=== PATIENT | female | born 1990 | race African-American/Black ===

== ENCOUNTER 2017-05-20 06:50 | Inpatient (IN) | payer OTHER ==
[2017-05-20] MEDS ORDERED: Ondansetron 4 MG/2 ML SDV IVPUSH PRN ×2 (07:03→08:26)
[2017-05-20] MEDS ORDERED: Sodium Chloride 0.9% 10 ML Syringe FLUSH PRN (07:03)
[2017-05-20] MEDS ORDERED: Nalbuphine 20 MG/1 ML Amp IVPUSH PRN (07:03)
[2017-05-20] MEDS ORDERED: Acetaminophen 325 MG Tab PO PRN ×2 (07:03→23:15)
--- NOTE | 2017-05-20 07:06 | PCM.LDHP ---
L&D History of Present Illness - General Date of Service: 05/20/17 Admit Problem/Dx: Patient Status Order with Admit Dx/Problem 05/20/17 07:04 Patient Status [ADT] Routine Admission Diagnosis/Problem Admission Diagnosis/Problem Normal Source of Information: Patient History Limitations: Reports: No Limitations - History of Present Illness Introduction:: Patient is a 26-year-old 001 at 39-6/7 weeks who presents today for elective induction of labor. Doing well today. Notes good movement. No pattern contractions. No complaints of headaches, vision changes, or right upper quadrant pain. - Related Data Allergies/Adverse Reactions: Allergies Allergy/AdvReac Type Severity Reaction Status Date / Time banana Allergy Stomach Verified 04/18/16 07:48 Ache Home Medications: Home Meds Ondansetron [Zofran ODT] 1 tab PO Q8H PRN #10 tab.dis 04/18/16 [Rx] Past Medical History Respiratory History: Reports: Asthma - Past Surgical History HEENT Surgical History: Reports: Eye Surgery Social & Family History - Family History Cardiac: Reports: Stent - Tobacco Use Smoking Status *Q: Never Smoker Second Hand Smoke Exposure: Yes - Alcohol Use Alcohol Use History: No Days Per Week of Alcohol Use: 0 - Recreational Drug Use Recreational Drug Use: No - Living Situation & Occupation Living situation: Reports: Single, with Significant Other, with Family Occupation: Employed H&P Review of Systems - Review of Systems: Review Of Systems: See Below General: Reports: No Symptoms Pulmonary: Reports: No Symptoms Cardiovascular: Reports: No Symptoms Gastrointestinal: Reports: No Symptoms Genitourinary: Reports: No Symptoms Musculoskeletal: Reports: No Symptoms Psychiatric: Reports: No Symptoms L&D Exam - Exam Exam: See Below - Vital Signs Weight: 67.585 kg - OB Specific Contraction Intensity: Mild Movement: Active Heart Tones: Present Heart Tones per Min: 135 Heart Rate (FHR) Variability: Moderate (6-25 bmp) Presentation: Vertex - Melendrez Score Melendrez Score Cervix Position: Posterior Melendrez Score Consistency: Soft Melendrez Score Effacement: 51-70% Melendrez Score Dilation: 3-4 cm Melendrez Score 's Station: -2 Melendrez Score Total: 7 - Exam General: Alert, Oriented, Cooperative Lungs: Clear to Auscultation, Normal Respiratory Effort Cardiovascular: Regular Rate, Regular Rhythm Abdomen: Soft Genitourinary: Normal external exam Extremities: Normal Inspection Skin: Warm, Dry, Intact - Patient Data Result Diagrams: 05/20/17 07:17 05/20/17 07:17 - Problem List (1) 40 weeks gestation of SNOMED Code(s): 20555937 ICD Code: Z3A.40 - 40 WEEKS GESTATION OF Status: Acute Current Visit: Yes (2) Gestational hypertension SNOMED Code(s): 93156939 ICD Code: O13.9 - GESTATIONAL HTN W/O SIGNIFICANT PROTEINURIA, UNSP TRIMESTER Status: Acute Current Visit: Yes Qualifiers: Trimester: third trimester Qualified Code(s): O13.3 - Gestational [ -induced] hypertension without significant proteinuria, third trimester Problem List Initiated/Reviewed/Updated: Yes Orders Last 24hrs: Active Orders 24 hr Category Date Time Status Patient Status [ADT] Routine ADT 05/20/17 07:04 Ordered Communication Order [RC] ASDIRECTED Care 05/20/17 07:03 Ordered Communication Order [RC] ASDIRECTED Care 05/20/17 07:03 Ordered Communication Order [RC] ASDIRECTED Care 05/20/17 07:03 Ordered Heart Tones [RC] ASDIRECTED Care 05/20/17 07:04 Ordered Notify Provider [RC] ASDIRECTED Care 05/20/17 07:03 Ordered Notify Provider [RC] PRN Care 05/20/17 07:03 Ordered Peripheral IV Care [RC] . DIRECTED Care 05/20/17 07:04 Ordered Up ad Marisol [RC] ASDIRECTED Care 05/20/17 07:03 Ordered Vaginal Exam [RC] ASDIRECTED Care 05/20/17 07:03 Ordered Vital Signs [RC] ASDIRECTED Care 05/20/17 07:03 Ordered Regular Diet [DIET] Diet 05/20/17 Breakfast Ordered CBC W/O DIFF,HEMOGRAM [HEME] Routine Lab 05/20/17 07:03 Ordered TYPE AND SCREEN [BBK] Routine Lab 05/20/17 07:03 Ordered Acetaminophen [Tylenol] Med 05/20/17 07:03 Ordered 650 mg PO Q4H PRN Lactated Ringers [Ringers, Lactated] 1,000 ml Med 05/20/17 07:15 Ordered IV ASDIRECTED Nalbuphine [Nubain] Med 05/20/17 07:03 Ordered 10 mg IVPUSH Q2H PRN Ondansetron [Zofran] Med 05/20/17 07:03 Ordered 4 mg IVPUSH Q4H PRN Oxytocin/Lactated Ringers [Pitocin in LR 10 Units/1,000 Med 05/20/17 07:15 Ordered ML] 10 unit in 1,000 ml IV TITRATE Oxytocin/Lactated Ringers [Pitocin in LR 10 Units/1,000 Med 05/20/17 07:15 Ordered ML] 10 unit in 1,000 ml IV TITRATE Penicillin G Potassium [Pfizerpen] 2.5 millunits Med 05/20/17 07:15 Ordered Sodium Chloride 0.9% [Normal Saline] 100 ml IV Q4H Penicillin G Potassium [Pfizerpen] 5 millunits Med 05/20/17 07:15 Ordered Sodium Chloride 0.9% [Normal Saline] 100 ml IV ONETIME Sodium Chloride 0.9% [Saline Flush] Med 05/20/17 07:03 Ordered 10 ml FLUSH ASDIRECTED PRN Electronic Heart Tones Ext w TOCO [WOMSER] Oth 05/20/17 07:03 Ordered Routine Electronic Heart Tones Internal [WOMSER] Per Unit Ot 05/20/17 07:03 Ordered Routine Peripheral IV Insertion Adult [OM.PC] Routine Oth 05/20/17 07:03 Ordered Resuscitation Status Routine Resus Stat 05/20/17 07:03 Ordered Assessment/Plan Comment:: 26-year-old at 39-6/7 weeks presented what was thought to be an elective induction of labor, but with findings of persistently mild range blood pressures. Likely gestational hypertension. * CBC, AST, ALT, creatinine, UA, and type and screen. * Monitor blood pressures closely * GBS positive, will start penicillin for antibiotic prophylaxis * Will begin induction with Pitocin and then move on to AROM as able * Pain management per patient preference * Anticipate Rachel Portillo MD
[2017-05-20] MEDS ORDERED: Penicillin G Potassium 5 MILLUNITS in Sodium Chloride 0.9% 100 ML IV ONE (07:15)
[2017-05-20] MEDS ORDERED: Oxytocin/Lactated Ringers 10 UNIT/1,000 ML BAG IV SCH (07:15)
[2017-05-20] MEDS: Oxytocin/Lactated Ringers 10 UNIT/1,000 ML BAG IV SCH ×2 (08:01→22:18)
[2017-05-20] MEDS: Lactated Ringers 1,000 ML IV SCH ×3 (08:02→11:58)
[2017-05-20] MEDS ORDERED: ePHEDrine 50 MG/ML SDV IVPUSH PRN (08:26)
[2017-05-20] MEDS ORDERED: fentaNYL 100 MCG/2 ML SDV EPIDUR PRN (08:26)
--- NOTE | 2017-05-20 10:32 | PCM.PREANE ---
Preanesthetic Assessment - Anesthesia/Transfusion/Family Hx Anesthesia History: Prior Anesthesia Without Reaction Family History of Anesthesia Reaction: No Transfusion History: No Prior Transfusion(s) Intubation History: Unknown - Review of Systems General: No Symptoms, Appetite (decreased) Pulmonary: No Symptoms (history of asthma/last used inhaler 3 years ago) Cardiovascular: No Symptoms (PIH), Palpitations (with anxiety) Gastrointestinal: No symptoms (GERD), Nausea Neurological: No Symptoms (history of motion sickness), Tingling (bilateral feet with (left foot currently)) Other: Reports: Anxiety - Physical Assessment NPO Status Date: 05/20/17 NPO Status Time: 08:00 Pulse: 93 O2 Sat by Pulse Oximetry: 98 Respiratory Rate: 18 Blood Pressure: 149/83 Temperature: 36.3 C Vital Signs: Last Vital Signs Temp 36.3 C 05/20/17 07:03 Pulse 93 05/20/17 07:03 Resp 18 05/20/17 07:03 BP 149/83 H 05/20/17 07:03 Pulse Ox 98 05/20/17 07:03 Height: 1.65 m Weight: 93.304 kg ASA Class: 2 Mental Status: Alert & Oriented x3 Airway Class: Mallampati = 2 Dentition: Reports: Normal Dentition, Caries Thyro-Mental Finger Breadths: 3 Mouth Opening Finger Breadths: 3 ROM/Head Extension: Full Lungs: Clear to auscultation, Normal respiratory effort Cardiovascular: Regular Rate, Regular Rhythm, No Murmurs - Lab Values: Laboratory Last Values WBC 12.69 K/mm3 (3.98-10.04) H 05/20/17 07:17 RBC 3.84 M/mm3 (3.98-5.22) L 05/20/17 07:17 Hgb 9.8 gm/L (11.2-15.7) L 05/20/17 07:17 Hct 31.1 % (34.1-44.9) L 05/20/17 07:17 MCV 81.0 fl (79.4-94.8) 05/20/17 07:17 MCH 25.5 pg (25.6-32.2) L 05/20/17 07:17 MCHC 31.5 g/dl (32.2-35.5) L 05/20/17 07: RDW Std Deviation 44.4 fL (36.4-46.3) 05/20/17 07:17 Plt Count 247 K/mm3 (182-369) 05/20/17 07:17 MPV 10.6 fl (9.4-12.3) 05/20/17 07:17 Creatinine 0.8 mg/dL (0.55-1.02) 05/20/17 07:17 Est Cr Clr Drug Dosing 97.57 mL/min 05/20/17 07:17 Estimated GFR (MDRD) > 60 mL/min (>60) 05/20/17 07:17 AST 29 U/L (15-37) 05/20/17 07:17 ALT 16 U/L (14-59) 05/20/17 07:17 Urine Color Yellow (Yellow) 05/20/17 09:15 Urine Appearance Slt cloudy (Clear) H 05/20/17 09:15 Urine pH 6.5 (5.0-8.0) 05/20/17 09:15 Ur Specific [place] 1.020 (1.005-1.030) 05/20/17 09:15 Urine Protein Negative (Negative) 05/20/17 09:15 Urine Glucose (UA) Negative (Negative) 05/20/17 09:15 Urine Ketones Negative (Negative) 05/20/17 09:15 Urine Occult Blood Negative (Negative) 05/20/17 09:15 Urine Nitrite Negative (Negative) 05/20/17 09:15 Urine Bilirubin Negative (Negative) 05/20/17 09:15 Urine Urobilinogen 0.2 (0.2-1.0) 05/20/17 09:15 Ur Leukocyte Esterase 2+ (Negative) H 05/20/17 09:15 Urine RBC Not seen /hpf (0-5) 05/20/17 09:15 Urine WBC 10-20 /hpf (0-5) H 05/20/17 09:15 Ur Epithelial Cells 5-10 /hpf (0-5) H 05/20/17 09:15 Urine Bacteria Many /hpf (FEW) H 05/20/17 09:15 Urine Mucus Not seen /hpf (FEW) 05/20/17 09:15 Blood Type O POSITIVE 05/20/17 07:17 Gel Antibody Screen Negative 05/20/17 07:17 Above lab values reviewed and noted. - Allergies Allergies/Adverse Reactions: Allergies Allergy/AdvReac Type Severity Reaction Status Date / Time banana Allergy Itching Verified 05/20/17 09:07 - Anesthesia Plan Pre-Op Medication Ordered: None - Acknowledgements Anesthesia Type Planned: Epidural Pt an Appropriate Candidate for the Planned Anesthesia: Yes Alternatives and Risks of Anesthesia Discussed w Pt/Guardian: Yes Pt/Guardian Understands and Agrees with Anesthesia Plan: Yes PreAnesthesia Questionnaire - Past Health History Medical/Surgical History: Denies Medical/Surgical History Respiratory History: Reports: Asthma Genitourinary History: Reports: UTI, Recurrent HAIR SPINNER History: Reports: - Past Surgical History HEENT Surgical History: Reports: Eye Surgery - SUBSTANCE USE Smoking Status *Q: Never Smoker Second Hand Smoke Exposure: Yes Days Per Week of Alcohol Use: 0 Recreational Drug Use History: No - HOME MEDS Home Medications: Home Meds Vits #93/Iron Fum/FA [ Formula Tablet] 05/20/17 [History] - CURRENT (IN HOUSE) MEDS Current Meds: Current Medications Acetaminophen (Tylenol) 650 mg PO Q4H PRN PRN Reason: Pain (Mild 1-3) and fever Ephedrine Sulfate (Ephedrine Sulfate) 5 mg IVPUSH ASDIRECTED PRN PRN Reason: Hypotension Fentanyl (Sublimaze) 100 mcg EPIDUR Q3H PRN PRN Reason: Pain Fentanyl/Bupivacaine HCl (Fentanyl/Bupivacaine/Ns 2 Mcg-0.125% 100 Ml) 100 ml EPIDUR ASDIRECTED PETRA Lactated Ringer's (Ringers, Lactated) 1,000 mls @ 40 mls/hr IV ASDIRECTED PETRA Last Admin: 05/20/17 08:02 Dose: 40 mls/hr Oxytocin/Lactated Ringer's (Pitocin In Lr 10 Units/1,000 Ml) 10 unit in 1,000 mls @ 500 mls/hr IV TITRATE PETRA PRN Reason: Protocol Oxytocin/Lactated Ringer's (Pitocin In Lr 10 Units/1,000 Ml) 10 unit in 1,000 mls @ 12 mls/hr IV TITRATE PETRA; 2 MUNITS/MIN PRN Reason: Protocol Last Titration: 05/20/17 09:30 Dose: 6 munits/min, 36 mls/hr Penicillin G Potassium 2.5 (millunits/ Sodium Chloride) 100 mls @ 55 mls/hr IV Q4H PETRA Nalbuphine HCl (Nubain) 10 mg IVPUSH Q2H PRN PRN Reason: Pain (moderate 4-6) Ondansetron HCl (Zofran) 4 mg IVPUSH Q4H PRN PRN Reason: Nausea/Vomiting Ondansetron HCl (Zofran) 4 mg IVPUSH ONETIME PRN PRN Reason: Nausea/Vomiting Sodium Chloride (Saline Flush) 10 ml FLUSH ASDIRECTED PRN PRN Reason: Keep Vein Open Discontinued Medications Penicillin G Potassium 5 (millunits/ Sodium Chloride) 100 mls @ 55 mls/hr IV ONETIME ONE Stop: 05/20/17 09:04 Last Admin: 05/20/17 08:00 Dose: 55 mls/hr
[2017-05-20] MEDS: Bupivacaine/fentaNYL/NS 100 ML Bag EPIDUR SCH ×2 (11:31→17:51)
[2017-05-20] MEDS: Penicillin G Potassium 2.5 MILLUNITS in Sodium Chloride 0.9% 100 ML IV SCH ×3 (11:58→19:59)
--- NOTE | 2017-05-20 12:53 | PCM.PNLD ---
Labor Progress Note - VS & Meds Vital Signs: Last Vital Signs Temp 36.3 C 05/20/17 10:39 Pulse 93 05/20/17 10:39 Resp 18 05/20/17 10:39 BP 149/83 H 05/20/17 10:39 Pulse Ox 98 05/20/17 10:39 Active Medications: Current Medications Acetaminophen (Tylenol) 650 mg PO Q4H PRN PRN Reason: Pain (Mild 1-3) and fever Ephedrine Sulfate (Ephedrine Sulfate) 5 mg IVPUSH ASDIRECTED PRN PRN Reason: Hypotension Fentanyl (Sublimaze) 100 mcg EPIDUR Q3H PRN PRN Reason: Pain Last Admin: 05/20/17 11:32 Dose: 100 mcg Fentanyl/Bupivacaine HCl (Fentanyl/Bupivacaine/Ns 2 Mcg-0.125% 100 Ml) 100 ml EPIDUR ASDIRECTED PETRA Last Admin: 05/20/17 11:31 Dose: 100 ml Lactated Ringer's (Ringers, Lactated) 1,000 mls @ 40 mls/hr IV ASDIRECTED PETRA Last Admin: 05/20/17 11:58 Dose: 40 mls/hr Oxytocin/Lactated Ringer's (Pitocin In Lr 10 Units/1,000 Ml) 10 unit in 1,000 mls @ 500 mls/hr IV TITRATE PETRA PRN Reason: Protocol Oxytocin/Lactated Ringer's (Pitocin In Lr 10 Units/1,000 Ml) 10 unit in 1,000 mls @ 12 mls/hr IV TITRATE PETRA; 2 MUNITS/MIN PRN Reason: Protocol Last Titration: 05/20/17 10:41 Dose: 8 munits/min, 48 mls/hr Penicillin G Potassium 2.5 (millunits/ Sodium Chloride) 100 mls @ 55 mls/hr IV Q4H PETRA Last Admin: 05/20/17 11:58 Dose: 55 mls/hr Nalbuphine HCl (Nubain) 10 mg IVPUSH Q2H PRN PRN Reason: Pain (moderate 4-6) Ondansetron HCl (Zofran) 4 mg IVPUSH Q4H PRN PRN Reason: Nausea/Vomiting Ondansetron HCl (Zofran) 4 mg IVPUSH ONETIME PRN PRN Reason: Nausea/Vomiting Sodium Chloride (Saline Flush) 10 ml FLUSH ASDIRECTED PRN PRN Reason: Keep Vein Open Discontinued Medications Penicillin G Potassium 5 (millunits/ Sodium Chloride) 100 mls @ 55 mls/hr IV ONETIME ONE Stop: 05/20/17 09:04 Last Admin: 05/20/17 08:00 Dose: 55 mls/hr - Uterine Contractions Uterine Monitoring Mode: External [place] Contraction Intensity: Moderate Uterine Resting Tone: Soft - Monitoring Monitor Mode: External Ultrasound Heart Rate (FHR) Baseline: 130 Heart Rate (FHR) Variability: Moderate (6-25 bmp) Accelerations: Present, 15x15 Decelerations: None Strip Review: Category I - Vaginal Exam Dilation (cm): 3-4 Effacement (Percent): 80 Station: -2 Cervical Position: Posterior - Labor Progress (Free Text) Labor Progress: Doing well. Comfortable with epidural in place. 2nd dose of antibiotics just finished. AROM performed with release of clear fluid. Continue present management. Rachel Portillo MD
--- NOTE | 2017-05-20 16:56 | PCM.PNLD ---
Labor Progress Note - VS & Meds Vital Signs: Last Vital Signs Temp 36.3 C 05/20/17 10:39 Pulse 93 05/20/17 10:39 Resp 18 05/20/17 10:39 BP 149/83 H 05/20/17 10:39 Pulse Ox 98 05/20/17 10:39 Active Medications: Current Medications Acetaminophen (Tylenol) 650 mg PO Q4H PRN PRN Reason: Pain (Mild 1-3) and fever Ephedrine Sulfate (Ephedrine Sulfate) 5 mg IVPUSH ASDIRECTED PRN PRN Reason: Hypotension Fentanyl (Sublimaze) 100 mcg EPIDUR Q3H PRN PRN Reason: Pain Last Admin: 05/20/17 11:32 Dose: 100 mcg Fentanyl/Bupivacaine HCl (Fentanyl/Bupivacaine/Ns 2 Mcg-0.125% 100 Ml) 100 ml EPIDUR ASDIRECTED PETRA Last Admin: 05/20/17 11:31 Dose: 100 ml Lactated Ringer's (Ringers, Lactated) 1,000 mls @ 40 mls/hr IV ASDIRECTED PETRA Last Admin: 05/20/17 11:58 Dose: 40 mls/hr Oxytocin/Lactated Ringer's (Pitocin In Lr 10 Units/1,000 Ml) 10 unit in 1,000 mls @ 500 mls/hr IV TITRATE PETRA PRN Reason: Protocol Oxytocin/Lactated Ringer's (Pitocin In Lr 10 Units/1,000 Ml) 10 unit in 1,000 mls @ 12 mls/hr IV TITRATE PETRA; 2 MUNITS/MIN PRN Reason: Protocol Last Titration: 05/20/17 15:18 Dose: 2 munits/min, 12 mls/hr Penicillin G Potassium 2.5 (millunits/ Sodium Chloride) 100 mls @ 55 mls/hr IV Q4H PETRA Last Admin: 05/20/17 15:55 Dose: 55 mls/hr Nalbuphine HCl (Nubain) 10 mg IVPUSH Q2H PRN PRN Reason: Pain (moderate 4-6) Ondansetron HCl (Zofran) 4 mg IVPUSH Q4H PRN PRN Reason: Nausea/Vomiting Ondansetron HCl (Zofran) 4 mg IVPUSH ONETIME PRN PRN Reason: Nausea/Vomiting Sodium Chloride (Saline Flush) 10 ml FLUSH ASDIRECTED PRN PRN Reason: Keep Vein Open Discontinued Medications Penicillin G Potassium 5 (millunits/ Sodium Chloride) 100 mls @ 55 mls/hr IV ONETIME ONE Stop: 05/20/17 09:04 Last Admin: 05/20/17 08:00 Dose: 55 mls/hr - Uterine Contractions Uterine Monitoring Mode: External [place] Contraction Intensity: Moderate Uterine Resting Tone: Soft - Monitoring Monitor Mode: External Ultrasound Heart Rate (FHR) Baseline: 130 Heart Rate (FHR) Variability: Moderate (6-25 bmp) Accelerations: Present, 15x15 Decelerations: None Strip Review: Category I - Vaginal Exam Dilation (cm): 9 Effacement (Percent): 80 Station: -1 Cervical Position: Anterior - Labor Progress (Free Text) Labor Progress: Doing well. Pitocin at 2. Continue present management. Anticipate Rachel Portillo MD
--- NOTE | 2017-05-20 19:33 | PCM.PNLD ---
Labor Progress Note - VS & Meds Vital Signs: Last Vital Signs Temp 36.3 C 05/20/17 10:39 Pulse 93 05/20/17 10:39 Resp 18 05/20/17 10:39 BP 149/83 H 05/20/17 10:39 Pulse Ox 98 05/20/17 10:39 Active Medications: Current Medications Acetaminophen (Tylenol) 650 mg PO Q4H PRN PRN Reason: Pain (Mild 1-3) and fever Ephedrine Sulfate (Ephedrine Sulfate) 5 mg IVPUSH ASDIRECTED PRN PRN Reason: Hypotension Fentanyl (Sublimaze) 100 mcg EPIDUR Q3H PRN PRN Reason: Pain Last Admin: 05/20/17 11:32 Dose: 100 mcg Fentanyl/Bupivacaine HCl (Fentanyl/Bupivacaine/Ns 2 Mcg-0.125% 100 Ml) 100 ml EPIDUR ASDIRECTED PETRA Last Admin: 05/20/17 17:51 Dose: 100 ml Lactated Ringer's (Ringers, Lactated) 1,000 mls @ 40 mls/hr IV ASDIRECTED PETRA Last Admin: 05/20/17 11:58 Dose: 40 mls/hr Oxytocin/Lactated Ringer's (Pitocin In Lr 10 Units/1,000 Ml) 10 unit in 1,000 mls @ 500 mls/hr IV TITRATE PETRA PRN Reason: Protocol Oxytocin/Lactated Ringer's (Pitocin In Lr 10 Units/1,000 Ml) 10 unit in 1,000 mls @ 12 mls/hr IV TITRATE PETRA; 2 MUNITS/MIN PRN Reason: Protocol Last Titration: 05/20/17 18:45 Dose: 6 munits/min, 36 mls/hr Penicillin G Potassium 2.5 (millunits/ Sodium Chloride) 100 mls @ 55 mls/hr IV Q4H PETRA Last Admin: 05/20/17 15:55 Dose: 55 mls/hr Nalbuphine HCl (Nubain) 10 mg IVPUSH Q2H PRN PRN Reason: Pain (moderate 4-6) Ondansetron HCl (Zofran) 4 mg IVPUSH Q4H PRN PRN Reason: Nausea/Vomiting Ondansetron HCl (Zofran) 4 mg IVPUSH ONETIME PRN PRN Reason: Nausea/Vomiting Sodium Chloride (Saline Flush) 10 ml FLUSH ASDIRECTED PRN PRN Reason: Keep Vein Open Discontinued Medications Penicillin G Potassium 5 (millunits/ Sodium Chloride) 100 mls @ 55 mls/hr IV ONETIME ONE Stop: 05/20/17 09:04 Last Admin: 05/20/17 08:00 Dose: 55 mls/hr - Uterine Contractions Uterine Monitoring Mode: External [place] Contraction Intensity: Moderate Uterine Resting Tone: Soft - Monitoring Monitor Mode: External Ultrasound Heart Rate (FHR) Baseline: 150 Heart Rate (FHR) Variability: Moderate (6-25 bmp) Accelerations: Present, 15x15 Decelerations: Early Strip Review: Category I - Vaginal Exam Dilation (cm): 9-10 Effacement (Percent): 100 Station: -1 Cervical Position: Anterior - Labor Progress (Free Text) Labor Progress: Patient at 1730 still only 9 cm, but feeling more pressure. Pitocin increased to 4. Patient assessed by myself at 1830 and with slight anterior lip of cervix, but still higher station. Thought to be OP presentation. Patient feeling urge to push and so allowed to push in lithotomy and also hands and knees briefly. Reassessment showed some change in station, but still slight anterior lip. Asked patient to try to relax and not push with contractions. Will place peanut ball and place patient on side. Will reassess in 30-40 minutes.
--- NOTE | 2017-05-20 21:58 | PCM.DEL ---
L & D Note - General Info Date of Service: 05/20/17 - Delivery Note Labor: induced by ARM, induced by oxytocin Delivery Outcome: Livebirth Infant Delivery Method: Spontaneous Vaginal Delivery Infant Delivery Mode: Spontaneous Presentation: Right Occiput Anterior (JONATHAN) Nuchal Cord: Present (Very tight and not able to be reduced) Anesthesia Type: Epidural Amniotic Fluid Description: Clear Episiotomy Type: None Laceration: 1st degree, perineal Suture type: vicryl Suture size: 3-0 Placenta: intact, spontaneous Cord: 3 vessels Estimated Blood Loss: 350 Resuscitation Needed: Yes : Suctioned, Bulb Syringe, Stimulated, Warmed, [place] Used, Warmer Used Score 1 min: 3 Score 5 min: 6 Score 10 min: 9 Delivery Comments (Free Text/Narrative):: Patient found to be complete and began pushing. She alternated pushing positions from lithotomy to hands/knees. Baby thought to be OP for majority of labor process. Eventually head did deliver from an JONATHAN presentation. Tight nuchal cord present and not able to be reduced. Mild shoulder dystocia noted where shoulders did not deliver following gentle traction downward on head. Mom's legs placed into deeper McRobert's and delivery of shoulder did occur. Baby with poor tone after delivery and so cord clamped and cut by myself and baby taken immediately to warmer for resuscitation. Cord segment obtained for cord gas. Cord blood obtained. Placenta allowed time to separate and then expelled. Inspection of the perineum showed a 1st degree laceration which was repaired with a 3-0 vicryl in the typical fashion. - Patient Data Vitals - most recent: Last Vital Signs Temp 36.3 C 05/20/17 10:39 Pulse 93 05/20/17 10:39 Resp 18 05/20/17 10:39 BP 149/83 H 05/20/17 10:39 Pulse Ox 98 05/20/17 10:39 Weight - most recent: 93.304 kg I&O - last 24 hours: Intake & Output 05/20/17 05/20/17 05/20/17 06:59 14:59 22:59 Intake Total 2200 100 Balance 2200 100 Lab Results last 24 hrs: Laboratory Results - last 24 hr 05/20/17 05/20/17 05/20/17 Range/Units 07:17 07:17 07:17 WBC 12.69 H (3.98-10.04) K/mm3 RBC 3.84 L (3.98-5.22) M/mm3 Hgb 9.8 L (11.2-15.7) gm/L Hct 31.1 L (34.1-44.9) % MCV 81.0 (79.4-94.8) fl MCH 25.5 L (25.6-32.2) pg MCHC 31.5 L (32.2-35.5) g/dl RDW Std Deviation 44.4 (36.4-46.3) fL Plt Count 247 (182-369) K/mm3 MPV 10.6 (9.4-12.3) fl Creatinine 0.8 (0.55-1.02) mg/dL Est Cr Clr Drug Dosing 97.57 mL/min Estimated GFR (MDRD) > 60 (>60) mL/min AST 29 (15-37) U/L ALT 16 (14-59) U/L Urine Color (Yellow) Urine Appearance (Clear) Urine pH (5.0-8.0) Ur Specific [place] (1.005-1.030) Urine Protein (Negative) Urine Glucose (UA) (Negative) Urine Ketones (Negative) Urine Occult Blood (Negative) Urine Nitrite (Negative) Urine Bilirubin (Negative) Urine Urobilinogen (0.2-1.0) Ur Leukocyte Esterase (Negative) Urine RBC (0-5) /hpf Urine WBC (0-5) /hpf Ur Epithelial Cells (0-5) /hpf Urine Bacteria (FEW) /hpf Urine Mucus (FEW) /hpf Blood Type O POSITIVE Gel Antibody Screen Negative 05/20/17 Range/Units 09:15 WBC (3.98-10.04) K/mm3 RBC (3.98-5.22) M/mm3 Hgb (11.2-15.7) gm/L Hct (34.1-44.9) % MCV (79.4-94.8) fl MCH (25.6-32.2) pg MCHC (32.2-35.5) g/dl RDW Std Deviation (36.4-46.3) fL Plt Count (182-369) K/mm3 MPV (9.4-12.3) fl Creatinine (0.55-1.02) mg/dL Est Cr Clr Drug Dosing mL/min Estimated GFR (MDRD) (>60) mL/min AST (15-37) U/L ALT (14-59) U/L Urine Color Yellow (Yellow) Urine Appearance Slt cloudy H (Clear) Urine pH 6.5 (5.0-8.0) Ur Specific [place] 1.020 (1.005-1.030) Urine Protein Negative (Negative) Urine Glucose (UA) Negative (Negative) Urine Ketones Negative (Negative) Urine Occult Blood Negative (Negative) Urine Nitrite Negative (Negative) Urine Bilirubin Negative (Negative) Urine Urobilinogen 0.2 (0.2-1.0) Ur Leukocyte Esterase 2+ H (Negative) Urine RBC Not seen (0-5) /hpf Urine WBC 10-20 H (0-5) /hpf Ur Epithelial Cells 5-10 H (0-5) /hpf Urine Bacteria Many H (FEW) /hpf Urine Mucus Not seen (FEW) /hpf Blood Type Gel Antibody Screen Med Orders - Current: Current Medications Acetaminophen (Tylenol) 650 mg PO Q4H PRN PRN Reason: Pain (Mild 1-3) and fever Ephedrine Sulfate (Ephedrine Sulfate) 5 mg IVPUSH ASDIRECTED PRN PRN Reason: Hypotension Fentanyl (Sublimaze) 100 mcg EPIDUR Q3H PRN PRN Reason: Pain Last Admin: 05/20/17 11:32 Dose: 100 mcg Fentanyl/Bupivacaine HCl (Fentanyl/Bupivacaine/Ns 2 Mcg-0.125% 100 Ml) 100 ml EPIDUR ASDIRECTED PETRA Last Admin: 05/20/17 17:51 Dose: 100 ml Lactated Ringer's (Ringers, Lactated) 1,000 mls @ 40 mls/hr IV ASDIRECTED PETRA Last Admin: 05/20/17 11:58 Dose: 40 mls/hr Oxytocin/Lactated Ringer's (Pitocin In Lr 10 Units/1,000 Ml) 10 unit in 1,000 mls @ 500 mls/hr IV TITRATE PETRA PRN Reason: Protocol Oxytocin/Lactated Ringer's (Pitocin In Lr 10 Units/1,000 Ml) 10 unit in 1,000 mls @ 12 mls/hr IV TITRATE PETRA; 2 MUNITS/MIN PRN Reason: Protocol Last Titration: 05/20/17 18:45 Dose: 6 munits/min, 36 mls/hr Penicillin G Potassium 2.5 (millunits/ Sodium Chloride) 100 mls @ 55 mls/hr IV Q4H PETRA Last Admin: 05/20/17 19:59 Dose: 55 mls/hr Nalbuphine HCl (Nubain) 10 mg IVPUSH Q2H PRN PRN Reason: Pain (moderate 4-6) Ondansetron HCl (Zofran) 4 mg IVPUSH Q4H PRN PRN Reason: Nausea/Vomiting Ondansetron HCl (Zofran) 4 mg IVPUSH ONETIME PRN PRN Reason: Nausea/Vomiting Sodium Chloride (Saline Flush) 10 ml FLUSH ASDIRECTED PRN PRN Reason: Keep Vein Open Discontinued Medications Penicillin G Potassium 5 (millunits/ Sodium Chloride) 100 mls @ 55 mls/hr IV ONETIME ONE Stop: 05/20/17 09:04 Last Admin: 05/20/17 08:00 Dose: 55 mls/hr - Problem List & Annotations (1) 40 weeks gestation of SNOMED Code(s): 26162898 Code(s): Z3A.40 - 40 WEEKS GESTATION OF Status: Acute Current Visit: Yes (2) Gestational hypertension SNOMED Code(s): 20979751 Code(s): O13.9 - GESTATIONAL HTN W/O SIGNIFICANT PROTEINURIA, UNSP TRIMESTER Status: Acute Current Visit: Yes Qualifiers: Trimester: third trimester Qualified Code(s): O13.3 - Gestational [ -induced] hypertension without significant proteinuria, third trimester (3) Vaginal delivery SNOMED Code(s): 773502850 Code(s): O80 - ENCOUNTER FOR FULL-TERM UNCOMPLICATED DELIVERY Status: Acute Current Visit: Yes - Problem List Review Problem List Initiated/Reviewed/Updated: Yes - My Orders Last 24 Hours: My Active Orders 05/20/17 07:03 Communication Order [RC] ASDIRECTED Communication Order [RC] ASDIRECTED Communication Order [RC] ASDIRECTED Notify Provider [RC] ASDIRECTED Notify Provider [RC] PRN Up ad Marisol [RC] ASDIRECTED Vaginal Exam [RC] ASDIRECTED Vital Signs [RC] ASDIRECTED Acetaminophen [Tylenol] 650 mg PO Q4H PRN Nalbuphine [Nubain] 10 mg IVPUSH Q2H PRN Ondansetron [Zofran] 4 mg IVPUSH Q4H PRN Sodium Chloride 0.9% [Saline Flush] 10 ml FLUSH ASDIRECTED PRN Electronic Heart Tones Ext w TOCO [WOMSER] Routine Electronic Heart Tones Internal [WOMSER] Per Unit Routine Peripheral IV Insertion Adult [OM.PC] Routine Resuscitation Status Routine 05/20/17 07:04 Patient Status [ADT] Routine Heart Tones [RC] ASDIRECTED Peripheral IV Care [RC] . DIRECTED 05/20/17 07:15 Lactated Ringers [Ringers, Lactated] 1,000 ml IV ASDIRECTED Oxytocin/Lactated Ringers [Pitocin in LR 10 Units/1,000 ML] 10 unit in 1,000 ml IV TITRATE Oxytocin/Lactated Ringers [Pitocin in LR 10 Units/1,000 ML] 10 unit in 1,000 ml IV TITRATE 05/20/17 11:00 Penicillin G Potassium [Pfizerpen] 2.5 millunits Sodium Chloride 0.9% [Normal Saline] 100 ml IV Q4H 05/20/17 21:54 Patient Status Manage Transfer [TRANSFER] Routine 05/20/17 Breakfast Regular Diet [DIET] - Assessment Assessment:: 26-year-old G2 now P2002 PPD#0 from at 39-6/7 weeks - Plan Plan:: * Routine cares * Encourage breast feeding * Discharge home in 1- 2 days Gestational HTN * Continue to monitor BP's closely * BP check in 1-2 weeks Rachel Portillo MD
[2017-05-20] MEDS ORDERED: Witch Hazel Medicated Pads 100/Jar TOP PRN (23:15)
[2017-05-20] MEDS ORDERED: Benzocaine/Menthol 20%-0.5% Spray 56 GM Canister TOP PRN (23:15)
[2017-05-20] MEDS ORDERED: Docusate Sodium 100 MG Cap PO PRN (23:15)
[2017-05-20] MEDS ORDERED: Lanolin 100% Cream 7 GM Tube TOP PRN (23:15)
[2017-05-20] MEDS ORDERED: Bupivacaine 0.25% 10 ML SDV ONE (23:15)
[2017-05-20] MEDS: Ibuprofen 600 MG Tab PO PRN (23:32)
[2017-05-21] MEDS: Penicillin G Potassium 2.5 MILLUNITS in Sodium Chloride 0.9% 100 ML IV SCH (03:20)
--- NOTE | 2017-05-21 08:08 | PCM.PNPP ---
- General Info Date of Service: 05/21/17 Functional Status: Reports: pain controlled, tolerating diet, ambulating, urinating - Review of Systems General: Reports: No Symptoms Pulmonary: Reports: no symptoms Cardiovascular: Reports: No Symptoms Gastrointestinal: Reports: No symptoms Genitourinary: Reports: no symptoms Musculoskeletal: Reports: leg pain (right sided, hip ) - Patient Data Vital Signs - most recent: Last Vital Signs Temp 36.8 C 05/21/17 02:45 Pulse 107 H 05/21/17 02:45 Resp 14 05/21/17 02:45 BP 145/56 H 05/21/17 02:45 Pulse Ox 99 05/21/17 02:45 Weight - most recent: 93.304 kg I&O - last 24 hours: Intake & Output 05/20/17 05/21/17 05/21/17 22:59 06:59 14:59 Intake Total 100 Balance 100 Lab Results - last 24 hrs: Laboratory Results - last 24 hr 05/20/17 05/20/17 05/20/17 Range/Units 07:17 09:15 21:58 Cord ABG pH 7.31 (7.22-7.32) Cord ABG pCO2 37.7 L (42-58) Cord ABG pO2 33 H (12-24) Cord ABG HCO3 18.5 L (24-26) Cord ABG Base Excess -6.7 L (-5.5-0.1) Cord VBG pH 7.34 (7.28-7.40) Cord VBG pCO2 37.7 (32.8-38.6) Cord VBG pO2 37 H (28-32) Cord VBG HCO3 19.6 (19-24) Cord VBG Base Excess -5.3 L (-4.4-0.4) Urine Color Yellow (Yellow) Urine Appearance Slt cloudy H (Clear) Urine pH 6.5 (5.0-8.0) Ur Specific [place] 1.020 (1.005-1.030) Urine Protein Negative (Negative) Urine Glucose (UA) Negative (Negative) Urine Ketones Negative (Negative) Urine Occult Blood Negative (Negative) Urine Nitrite Negative (Negative) Urine Bilirubin Negative (Negative) Urine Urobilinogen 0.2 (0.2-1.0) Ur Leukocyte Esterase 2+ H (Negative) Urine RBC Not seen (0-5) /hpf Urine WBC 10-20 H (0-5) /hpf Ur Epithelial Cells 5-10 H (0-5) /hpf Urine Bacteria Many H (FEW) /hpf Urine Mucus Not seen (FEW) /hpf Blood Type O POSITIVE Gel Antibody Screen Negative Med Orders - Current: Current Medications Acetaminophen (Tylenol) 650 mg PO Q4H PRN PRN Reason: mild pain or fever Benzocaine/Menthol (Dermoplast Pain Relief [place]) 0 gm TOP ASDIRECTED PRN PRN Reason: Perineal Comfort Measure Last Admin: 05/20/17 23:33 Dose: 1 can Docusate Sodium (Colace) 100 mg PO BID PRN PRN Reason: Constipation Last Admin: 05/20/17 23:32 Dose: 100 mg Emollient Ointment (Lansinoh Hpa) 0 gm TOP ASDIRECTED PRN PRN Reason: Sore Nipples Last Admin: 05/20/17 23:32 Dose: 1 tube Ibuprofen (Motrin) 600 mg PO Q6H PRN PRN Reason: Mild pain or fever Last Admin: 05/20/17 23:32 Dose: 600 mg Witch Geri (Tucks) 1 pad TOP ASDIRECTED PRN PRN Reason: Hemorrhoid pain Last Admin: 05/20/17 23:33 Dose: 1 container Discontinued Medications Acetaminophen (Tylenol) 650 mg PO Q4H PRN PRN Reason: Pain (Mild 1-3) and fever Ephedrine Sulfate (Ephedrine Sulfate) 5 mg IVPUSH ASDIRECTED PRN PRN Reason: Hypotension Fentanyl (Sublimaze) 100 mcg EPIDUR Q3H PRN PRN Reason: Pain Last Admin: 05/20/17 11:32 Dose: 100 mcg Fentanyl/Bupivacaine HCl (Fentanyl/Bupivacaine/Ns 2 Mcg-0.125% 100 Ml) 100 ml EPIDUR ASDIRECTED [facility] Last Admin: 05/20/17 17:51 Dose: 100 ml Lactated Ringer's (Ringers, Lactated) 1,000 mls @ 40 mls/hr IV ASDIRECTED [facility] Last Admin: 05/20/17 11:58 Dose: 40 mls/hr Oxytocin/Lactated Ringer's (Pitocin In Lr 10 Units/1,000 Ml) 10 unit in 1,000 mls @ 500 mls/hr IV TITRATE [facility] PRN Reason: Protocol Oxytocin/Lactated Ringer's (Pitocin In Lr 10 Units/1,000 Ml) 10 unit in 1,000 mls @ 12 mls/hr IV TITRATE PETRA; 2 MUNITS/MIN PRN Reason: Protocol Last Admin: 05/20/17 22:18 Dose: 6 munits/min, 999 mls/hr Penicillin G Potassium 5 (millunits/ Sodium Chloride) 100 mls @ 55 mls/hr IV ONETIME ONE Stop: 05/20/17 09:04 Last Admin: 05/20/17 08:00 Dose: 55 mls/hr Penicillin G Potassium 2.5 (millunits/ Sodium Chloride) 100 mls @ 55 mls/hr IV Q4H PETRA Last Admin: 05/21/17 03:20 Dose: Not Given Nalbuphine HCl (Nubain) 10 mg IVPUSH Q2H PRN PRN Reason: Pain (moderate 4-6) Ondansetron HCl (Zofran) 4 mg IVPUSH Q4H PRN PRN Reason: Nausea/Vomiting Ondansetron HCl (Zofran) 4 mg IVPUSH ONETIME PRN PRN Reason: Nausea/Vomiting Sodium Chloride (Saline Flush) 10 ml FLUSH ASDIRECTED PRN PRN Reason: Keep Vein Open - Infant Interaction Disposition, : [place] in Room with Family Interaction: Holding Infant Feeding: Attempted ; Nursed Fair/Poor Support Person: Mother, Significant Other - Recovery Exam Fundal Tone: Firm Fundal Level: 1 Fingerbreadths Below Umbilicus Fundal Placement: Right Lochia Amount: Small, Moderate Lochia Color: Rubra/Red Perineum Description: Edematous, Other (see below) Other Perinuem Description: 1st degree laceration with repair Episiotomy/Laceration: Approximated Bladder Status: Voiding Urinary Elimination: Voided - Exam General: alert, oriented, cooperative Abdomen: soft, no tenderness Extremities: edema Skin: warm, dry, intact - Problem List & Annotations (1) 40 weeks gestation of SNOMED Code(s): 31417189 Code(s): Z3A.40 - 40 WEEKS GESTATION OF Status: Acute Current Visit: Yes (2) Gestational hypertension SNOMED Code(s): 09594833 Code(s): O13.9 - GESTATIONAL HTN W/O SIGNIFICANT PROTEINURIA, UNSP TRIMESTER Status: Acute Current Visit: Yes Qualifiers: Trimester: third trimester Qualified Code(s): O13.3 - Gestational [ -induced] hypertension without significant proteinuria, third trimester (3) Vaginal delivery SNOMED Code(s): 573273307 Code(s): O80 - ENCOUNTER FOR FULL-TERM UNCOMPLICATED DELIVERY Status: Acute Current Visit: Yes - Problem List Review Problem List Initiated/Reviewed/Updated: Yes - My Orders Last 24 Hours: My Active Orders 05/20/17 23:15 Activity as Tolerated [RC] PER UNIT ROUTINE Vital Signs [RC] 04,12,20 Acetaminophen [Tylenol] 650 mg PO Q4H PRN Benzocaine/Menthol [Dermoplast Pain Relief [place]] See Dose Instructions TOP ASDIRECTED PRN Docusate Sodium [Colace] 100 mg PO BID PRN Ibuprofen [Motrin] 600 mg PO Q6H PRN Lanolin [Lansinoh HPA] See Dose Instructions TOP ASDIRECTED PRN Witch Geri [Tucks] 1 pad TOP ASDIRECTED PRN Assess Lochia [WOMSER] Per Unit Routine Assess Uterine Involution [WOMSER] Per Unit Routine Breast Pump [WOMSER] Per Unit Routine Heat Therapy [OM.PC] PRN Ice Therapy [OM.PC] Per Unit Routine Perineal Care [OM.PC] Per Unit Routine Peripheral IV Discontinue [OM.PC] Routine Sitz Bath [OM.PC] Per Unit Routine 05/21/17 23:15 Heat Therapy [OM.PC] PRN - Assessment Assessment:: 26-year-old G2 now P2002 PPD#1 from at 39-6/7 weeks - Plan Plan:: * Routine cares * Encourage breast feeding * Discharge home tomorrow Gestational HTN * Continue to monitor BP's closely * BP check in 1-2 weeks Rachel Portillo MD
[2017-05-21] MEDS: Ibuprofen 600 MG Tab PO PRN (09:15)
--- NOTE | 2017-05-21 09:15 | PCM48HPAN ---
Post Anesthesia Note - EVALUATION WITHIN 48HRS OF ANESTHETIC Vital Signs in Normal Range: Yes Patient Participated in Evaluation: Yes Respiratory Function Stable: Yes Airway Patent: Yes Cardiovascular Function Stable: Yes Hydration Status Stable: Yes Pain Control Satisfactory: Yes Nausea and Vomiting Control Satisfactory: Yes Mental Status Recovered: Yes - COMMENTS/OBSERVATIONS Free Text/Narrative:: Pt reports continued numbness and weakness of the right leg from mid-thigh down. upon exam, the weakness appears to have resolved, but the numbness remains. reassured pt that this too will most likely resolve over the course of the next day, but that I would see her again tomorrow morning to re-check. up to bathroom, taking po. no fever.
[2017-05-22] MEDS: Ibuprofen 600 MG Tab PO PRN (00:01)
--- NOTE | 2017-05-22 09:33 | PCM.DCSUM1 ---
Discharge Summary - Hospital Course Free Text/Narrative:: Anamaria is a 26-year-old 2 para 2002 -[place] female who was induced with artificial rupture membranes and Pitocin for borderline blood pressure elevations. She progressed well through labor. Baby delivered in a right occiput anterior position. She had an epidural placed for labor and analgesia She had a first-degree perineal laceration which was repaired with 3-0 Vicryl. Placenta delivered intact in a spontaneous fashion. The umbilical cord had 3 vessels. Baby had Apgars of 3, 6 and 9 at one and 5 and 10 minutes respectively. Mild shoulder dystocia was noted. Patient is nursing. patient has done very well. She is ambulating well, voiding without concerns and has minimal pain. Nursing is going well. Patient is desiring to be discharged. - Discharge Data Discharge Date: 05/22/17 Discharge Disposition: Home, Self-Care 01 Preliminary Cause of *Q: Respiratory Failure Condition: Good - Patient Instructions Diet: Regular Diet as Tolerated (Nursing diet with increase calories and calcium as recommended.) Activity: As Tolerated (No intercourse or tampons until bleeding resolves) Driving: May Drive Today (May drive after today.) Showering/Bathing: May Shower (May take a bath) Notify Provider of: Fever, Increased Pain, Swelling and Redness, Nausea and/or Vomiting - Discharge Plan Home Medications: Home Meds Vits #93/Iron Fum/FA [ Formula Tablet] 05/20/17 [History] Ibuprofen [IJD: Ibuprofen] 600 mg PO Q6H PRN #30 tablet 05/22/17 [Rx] Patient Handouts: Vaginal Delivery, Care After, Breast Pumping Tips, Easy-to- Read, Challenges and Solutions Referrals: Rachel Portillo MD [Primary Care Provider] - (Return to clinicDr. Portillo6 weeks.) - Discharge Summary/Plan Comment DC Time >30 min.: No Discharge Summary/Plan Comment: Discharge instructions: 1. Discharge home. 2. Regular, high fiber, nursing diet 3. Routine post activity, follow-up and diet discussed in detail with patient. 4. Precautions given concern increased pain, bleeding, temperature, signs/ symptoms of DVT and PE. 5. Medications per home medication was printed, discussed with them given to the patient. 6. Return to clinic-Dr. Portillo-6 weeks. Diagnosis: Term -delivered Condition: Good - Patient Data Vitals - Most Recent: Last Vital Signs Temp 36.7 C 05/22/17 04:00 Pulse 89 05/22/17 04:00 Resp 14 05/22/17 04:00 BP 133/76 05/22/17 04:00 Pulse Ox 99 05/22/17 04:00 Weight - Most Recent: 93.304 kg Med Orders - Current: Current Medications Acetaminophen (Tylenol) 650 mg PO Q4H PRN PRN Reason: mild pain or fever Benzocaine/Menthol (Dermoplast Pain Relief [place]) 0 gm TOP ASDIRECTED PRN PRN Reason: Perineal Comfort Measure Last Admin: 05/20/17 23:33 Dose: 1 can Docusate Sodium (Colace) 100 mg PO BID PRN PRN Reason: Constipation Last Admin: 05/20/17 23:32 Dose: 100 mg Emollient Ointment (Lansinoh Hpa) 0 gm TOP ASDIRECTED PRN PRN Reason: Sore Nipples Last Admin: 05/20/17 23:32 Dose: 1 tube Ibuprofen (Motrin) 600 mg PO Q6H PRN PRN Reason: Mild pain or fever Last Admin: 05/22/17 00:01 Dose: 600 mg Witch Geri (Tucks) 1 pad TOP ASDIRECTED PRN PRN Reason: Hemorrhoid pain Last Admin: 05/20/17 23:33 Dose: 1 container Discontinued Medications Acetaminophen (Tylenol) 650 mg PO Q4H PRN PRN Reason: Pain (Mild 1-3) and fever Ephedrine Sulfate (Ephedrine Sulfate) 5 mg IVPUSH ASDIRECTED PRN PRN Reason: Hypotension Fentanyl (Sublimaze) 100 mcg EPIDUR Q3H PRN PRN Reason: Pain Last Admin: 05/20/17 11:32 Dose: 100 mcg Fentanyl/Bupivacaine HCl (Fentanyl/Bupivacaine/Ns 2 Mcg-0.125% 100 Ml) 100 ml EPIDUR ASDIRECTED PETRA Last Admin: 05/20/17 17:51 Dose: 100 ml Lactated Ringer's (Ringers, Lactated) 1,000 mls @ 40 mls/hr IV ASDIRECTED PETRA Last Admin: 05/20/17 11:58 Dose: 40 mls/hr Oxytocin/Lactated Ringer's (Pitocin In Lr 10 Units/1,000 Ml) 10 unit in 1,000 mls @ 500 mls/hr IV TITRATE PETRA PRN Reason: Protocol Oxytocin/Lactated Ringer's (Pitocin In Lr 10 Units/1,000 Ml) 10 unit in 1,000 mls @ 12 mls/hr IV TITRATE PETRA; 2 MUNITS/MIN PRN Reason: Protocol Last Admin: 05/20/17 22:18 Dose: 6 munits/min, 999 mls/hr Penicillin G Potassium 5 (millunits/ Sodium Chloride) 100 mls @ 55 mls/hr IV ONETIME ONE Stop: 05/20/17 09:04 Last Admin: 05/20/17 08:00 Dose: 55 mls/hr Penicillin G Potassium 2.5 (millunits/ Sodium Chloride) 100 mls @ 55 mls/hr IV Q4H PETRA Last Admin: 05/21/17 03:20 Dose: Not Given Nalbuphine HCl (Nubain) 10 mg IVPUSH Q2H PRN PRN Reason: Pain (moderate 4-6) Ondansetron HCl (Zofran) 4 mg IVPUSH Q4H PRN PRN Reason: Nausea/Vomiting Ondansetron HCl (Zofran) 4 mg IVPUSH ONETIME PRN PRN Reason: Nausea/Vomiting Sodium Chloride (Saline Flush) 10 ml FLUSH ASDIRECTED PRN PRN Reason: Keep Vein Open *Q Meaningful Use (DIS) - VTE *Q VTE Criteria *Q: - Stroke *Q Stroke Criteria *Q: - AMI *Q AMI Criteria *Q:
[2017-05-22 09:46] VITALS: BP 124/75
== END 2017-05-22 11:40 | disposition home or self-care (01) | DRG 775 ==
LOC: JD.OB 06:50 → OBSVTOIN 21:29
PROVIDERS: ADMIT Obstetrics & Gynecology; ATTEND Obstetrics & Gynecology
PROC: 10E0XZZ Delivery of Products of Conception, External Approach (ICD-10-PCS; principal; 2017-05-20)
PROC: 10907ZC Drainage of Amniotic Fluid, Therapeutic from Products of Conception, Via Natural or Artificial Opening (ICD-10-PCS; 2017-05-20)
PROC: 3E033VJ Introduction of Other Hormone into Peripheral Vein, Percutaneous Approach (ICD-10-PCS; 2017-05-20)
PROC: 0HQ9XZZ Repair Perineum Skin, External Approach (ICD-10-PCS; 2017-05-20)
PROC: 00HU33Z Insertion of Infusion Device into Spinal Canal, Percutaneous Approach (ICD-10-PCS; 2017-05-20)
PROC: 3E0R3CZ (ICD-10-PCS; 2017-05-20)
DX: O13.4 Gestational [pregnancy-induced] hypertension without significant proteinuria, complicating childbirth (principal); Z3A.40 40 weeks gestation of pregnancy; Z37.0 Single live birth; O99.824 Streptococcus B carrier state complicating childbirth; O70.0 First degree perineal laceration during delivery; O69.81X0 Labor and delivery complicated by cord around neck, without compression, not applicable or unspecified; Z91.018 Allergy to other foods
CPT/HCPCS: 01967; 36415; 36600; 81001; 82565; 82803; 84450; 84460; 85027; 86850; 86900; 86901; A9270-GY; J2540; J2590; J3010; J7030; J7120

== ENCOUNTER 2019-01-12 18:57 | Inpatient (IN) | payer BC ==
[2019-01-12] MEDS ORDERED: Sodium Chloride 0.9% 10 ML Syringe FLUSH PRN (19:05)
[2019-01-12] MEDS ORDERED: Ondansetron 4 MG/2 ML SDV IVPUSH PRN (19:05)
[2019-01-12] MEDS ORDERED: Nalbuphine 20 MG/ML 1 ML Syringe IVPUSH PRN (19:05)
--- NOTE | 2019-01-12 19:10 | PCM.LDHP ---
L&D History of Present Illness - General Date of Service: 01/12/19 Admit Problem/Dx: Patient Status Order with Admit Dx/Problem 01/12/19 19:05 Patient Status [ADT] Routine Admission Diagnosis/Problem Admission Diagnosis/Problem Normal in third trimester Source of Information: Patient History Limitations: Reports: No Limitations - History of Present Illness Introduction:: Patient is a 28 y/o at 39 6/7 wks who presents for elective IOL. Doing well today. Some contractions, but nothing patterned. No bleeding or LOF. 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 (Approximate): Psychiatric History: Reports: Depression (History of depression) - Past Surgical History HEENT Surgical History: Reports: Eye Surgery Social & Family History - Family History Cardiac: Reports: Stent - Tobacco Use Smoking Status *Q: Never Smoker - Alcohol Use Alcohol Use History: No - Recreational Drug Use Recreational Drug Use: No - Living Situation & Occupation Living situation: Reports: Single, with Significant Other, with Family Occupation: Employed H&P Review of Systems - Review of Systems: Review Of Systems: See Below General: Reports: No Symptoms Pulmonary: Reports: No Symptoms Cardiovascular: Reports: No Symptoms Gastrointestinal: Reports: No Symptoms Genitourinary: Reports: No Symptoms Musculoskeletal: Reports: No Symptoms Psychiatric: Reports: No Symptoms L&D Exam - Exam Exam: See Below - OB Specific Contraction Intensity: Mild Movement: Active Heart Tones: Present Heart Tones per Min: 135 Heart Rate (FHR) Variability: Moderate (6-25 bmp) Presentation: Vertex - Melendrez Score Melendrez Score Cervix Position: Posterior Melendrez Score Consistency: Soft Melendrez Score Effacement: 51-70% Melendrez Score Dilation: 3-4 cm Melendrez Score Infant's Station: -2 Melendrez Score Total: 7 - Exam General: Alert, Oriented, Cooperative Lungs: Clear to Auscultation, Normal Respiratory Effort Cardiovascular: Regular Rate, Regular Rhythm GI/Abdominal Exam: Soft, Non-Tender Genitourinary: Normal external exam Extremities: Normal Inspection Skin: Warm, Dry, Intact - Problem List (1) 40 weeks gestation of SNOMED Code(s): 70397886 ICD Code: Z3A.40 - 40 WEEKS GESTATION OF Status: Acute Current Visit: No Problem List Initiated/Reviewed/Updated: Yes Orders Last 24hrs: Active Orders 24 hr Category Date Time Status Patient Status [ADT] Routine ADT 01/12/19 19:05 Active Activity as Tolerated [RC] PFP Care 01/12/19 19:05 Active Communication Order [RC] ASDIRECTED Care 01/12/19 19:05 Active Communication Order [RC] ASDIRECTED Care 01/12/19 19:05 Active Communication Order [RC] ASDIRECTED Care 01/12/19 19:05 Active Monitoring [RC] INTERMITTENT Care 01/12/19 19:05 Active Non Stress Test [RC] PER UNIT ROUTINE Care 01/12/19 19:05 Active Notify Provider [RC] ASDIRECTED Care 01/12/19 19:05 Active Notify Provider [RC] PRN Care 01/12/19 19:05 Active Peripheral IV Care [RC] . DIRECTED Care 01/12/19 19:06 Active Vaginal Exam [RC] ASDIRECTED Care 01/12/19 19:05 Active Vital Signs [RC] ASDIRECTED Care 01/12/19 19:05 Active Regular Diet [DIET] Diet 01/12/19 Dinner Active CBC W/O DIFF,HEMOGRAM [HEME] Routine Lab 01/12/19 19:05 Ordered RAPID PLASMA REAGIN,RPR [CHEM] Routine Lab 01/12/19 19:05 Ordered TYPE AND SCREEN [BBK] Routine Lab 01/12/19 19:05 Ordered Lactated Ringers [Ringers, Lactated] 1,000 ml Med 01/12/19 19:15 Ordered IV ASDIRECTED Nalbuphine [Nubain] Med 01/12/19 19:05 Ordered 10 mg IVPUSH Q2H PRN Ondansetron [Zofran] Med 01/12/19 19:05 Ordered 4 mg IVPUSH Q4H PRN Oxytocin/Lactated Ringers [Pitocin in LR 10 Units/1,000 Med 01/12/19 19:15 Ordered ML] 10 unit in 1,000 ml IV .CONTINUOUS Oxytocin/Lactated Ringers [Pitocin in LR 10 Units/1,000 Med 01/12/19 19:15 Ordered ML] 10 unit in 1,000 ml IV TITRATE Sodium Chloride 0.9% [Saline Flush] Med 01/12/19 19:05 Ordered 10 ml FLUSH ASDIRECTED PRN Electronic Heart Tones Internal [WOMSER] Per Unit Oth 01/12/19 19:05 Ordered Routine Peripheral IV Insertion Adult [OM.PC] Routine Oth 01/12/19 19:05 Ordered Resuscitation Status Routine Resus Stat 01/12/19 19:05 Ordered Medication Orders Lactated Ringer's (Ringers, Lactated) 1,000 mls @ 40 mls/hr IV ASDIRECTED PETRA Oxytocin/Lactated Ringer's (Pitocin In Lr 10 Units/1,000 Ml) 10 unit in 1,000 mls @ 12 mls/hr IV TITRATE PETRA; Protocol Oxytocin/Lactated Ringer's (Pitocin In Lr 10 Units/1,000 Ml) 10 unit in 1,000 mls @ 500 mls/hr IV .CONTINUOUS PETRA Nalbuphine HCl (Nubain) 10 mg IVPUSH Q2H PRN PRN Reason: pain Ondansetron HCl (Zofran) 4 mg IVPUSH Q4H PRN PRN Reason: Nausea/Vomiting Sodium Chloride (Saline Flush) 10 ml FLUSH ASDIRECTED PRN PRN Reason: Keep Vein Open Assessment/Plan Comment:: 28 y/o at 39 6/7 wks presents for IOL * Labs * GBS negative, no need for antibiotics * Pitocin and AROM for IOL * Pain management per patient preference * Anticipate
[2019-01-12] MEDS ORDERED: Oxytocin/Lactated Ringers 10 UNIT/1,000 ML BAG IV SCH ×2 (19:15)
[2019-01-12] MEDS ORDERED: fentaNYL 100 MCG/2 ML SDV EPIDUR PRN (20:01)
[2019-01-12] MEDS ORDERED: diphenhydrAMINE 50 MG/ML SDV IVPUSH PRN (20:01)
[2019-01-12] MEDS ORDERED: ePHEDrine 50 MG/ML SDV IVPUSH PRN (20:01)
--- NOTE | 2019-01-12 20:07 | PCM.PREANE ---
Preanesthetic Assessment - Procedure Proposed Procedure: lizandro - Anesthesia/Transfusion/Family Hx Anesthesia History: Prior Anesthesia Without Reaction Type of Anesthesia Reaction: Other (see below) (hard epidural) Family History of Anesthesia Reaction: No Transfusion History: No Prior Transfusion(s) Intubation History: Unknown - Review of Systems General: No Symptoms Pulmonary: No Symptoms Cardiovascular: No Symptoms Gastrointestinal: No Symptoms Neurological: No Symptoms Other: Reports: None - Physical Assessment Pulse: 102 O2 Sat by Pulse Oximetry: 100 Respiratory Rate: 15 Blood Pressure: 129/80 Temperature: 98.9 F Height: 5 ft 5 in Weight: 94.801 kg ASA Class: 2 Mental Status: Alert & Oriented x3 Airway Class: Mallampati = 1 Dentition: Reports: Normal Dentition Thyro-Mental Finger Breadths: 3 Mouth Opening Finger Breadths: 3 ROM/Head Extension: Full Lungs: Clear to Auscultation, Normal Respiratory Effort Cardiovascular: Regular Rate, Regular Rhythm - Allergies Allergies/Adverse Reactions: Allergies Allergy/AdvReac Type Severity Reaction Status Date / Time banana Allergy Itching Verified 05/20/17 09:07 - Blood Blood Available: No - Acknowledgements Anesthesia Type Planned: Epidural Pt an Appropriate Candidate for the Planned Anesthesia: Yes Alternatives and Risks of Anesthesia Discussed w Pt/Guardian: Yes Pt/Guardian Understands and Agrees with Anesthesia Plan: Yes PreAnesthesia Questionnaire - Past Health History Medical/Surgical History: Denies Medical/Surgical History Cardiovascular History: Reports: None Respiratory History: Reports: Asthma Gastrointestinal History: Reports: GERD (with preg) Genitourinary History: Reports: UTI, 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: 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: : 3 (39 weeks) Para: 2 - Past Surgical History HEENT Surgical History: Reports: Eye Surgery - History Comment History Comment: iron and vit b complex - SUBSTANCE USE Smoking Status *Q: Never Smoker Tobacco Use Within Last Twelve Months: No Second Hand Smoke Exposure: Yes Days Per Week of Alcohol Use: 0 Recreational Drug Use History: No - HOME MEDS Home Medications: Home Meds Vits #93/Iron Fum/FA [ Formula Tablet] 05/20/17 [History] Ibuprofen [IJD: Ibuprofen] 600 mg PO Q6H PRN #30 tablet 05/22/17 [Rx] - CURRENT (IN HOUSE) MEDS Current Meds: Current Medications Lactated Ringer's (Ringers, Lactated) 1,000 mls @ 40 mls/hr IV ASDIRECTED PETRA Oxytocin/Lactated Ringer's (Pitocin In Lr 10 Units/1,000 Ml) 10 unit in 1,000 mls @ 12 mls/hr IV TITRATE PETRA; Protocol Oxytocin/Lactated Ringer's (Pitocin In Lr 10 Units/1,000 Ml) 10 unit in 1,000 mls @ 500 mls/hr IV .CONTINUOUS PETRA Nalbuphine HCl (Nubain) 10 mg IVPUSH Q2H PRN PRN Reason: pain Ondansetron HCl (Zofran) 4 mg IVPUSH Q4H PRN PRN Reason: Nausea/Vomiting Sodium Chloride (Saline Flush) 10 ml FLUSH ASDIRECTED PRN PRN Reason: Keep Vein Open
[2019-01-12] MEDS ORDERED: fentaNYL/Bupivacaine-NS 2 MCG/ML-0.125%/PF 100 ML Bag EP SCH ×2 (20:15)
[2019-01-12] MEDS ORDERED: Lidocaine 1.5% with EPINEPHrine 1:200,000 5 ML Amp ONE (22:00)
[2019-01-12] MEDS ORDERED: Bupivacaine 0.25% 10 ML SDV ONE (22:00)
[2019-01-12] MEDS: Lactated Ringers 1,000 ML IV SCH (22:15)
[2019-01-13] MEDS: Lactated Ringers 1,000 ML IV SCH ×2 (01:11→01:13)
--- NOTE | 2019-01-13 01:55 | PCM.DEL ---
L & D Note - General Info Date of Service: 01/13/19 - Delivery Note Labor: Induced by ARM Delivery Outcome: Livebirth Infant Delivery Method: Spontaneous Vaginal Delivery-Single Infant Delivery Mode: Spontaneous Presentation: Right Occiput Anterior (JONATHAN) Nuchal Cord: Present (not able to be reduced) Anesthesia Type: Epidural Amniotic Fluid Description: Clear Episiotomy Type: None Laceration: None Placenta: Intact, Spontaneous Cord: 3 Vessels Estimated Blood Loss: 200 Resuscitation Needed: Yes : Bulb Syringe, Stimulated, Warmed, [place] Used, Warmer Used Delivery Comments (Free Text/Narrative):: Patient found to be complete and began pushing. With maternal pushing effort head delivered from an JONATHAN presentation. Nuchal cord present, but tight and not reduced. With gentle downward traction the shoulders and body delivered. Infant placed on maternal abdomen. Cord clamped and cut. Cord blood obtained. Placenta allowed time to separate and expelled intact. Inspection of the perineum showed no lacerations - General Info Date of Service: 01/13/19 - Patient Data Vitals - Most Recent: Last Vital Signs Temp 37.2 C 01/12/19 20:10 Pulse 102 H 01/12/19 20:10 Resp 15 01/12/19 20:10 BP 129/80 01/12/19 20:10 Pulse Ox 100 01/12/19 20:10 Weight - Most Recent: 94.801 kg Lab Results Last 24 Hours: Laboratory Results - last 24 hr 01/12/19 01/12/19 Range/Units 19:25 19:25 WBC 12.12 H (3.98-10.04) K/mm3 RBC 4.37 (3.98-5.22) M/mm3 Hgb 11.8 (11.2-15.7) gm/L Hct 36.7 (34.1-44.9) % MCV 84.0 (79.4-94.8) fl MCH 27.0 (25.6-32.2) pg MCHC 32.2 (32.2-35.5) g/dl RDW Std Deviation 45.9 (36.4-46.3) fL Plt Count 234 (182-369) K/mm3 MPV 9.8 (9.4-12.3) fl Blood Type O POSITIVE Gel Antibody Screen Negative Med Orders - Current: Current Medications Diphenhydramine HCl (Benadryl) 25 mg IVPUSH Q6H PRN PRN Reason: pruritis Ephedrine Sulfate (Ephedrine Sulfate) 5 mg IVPUSH ASDIRECTED PRN PRN Reason: Hypotension Fentanyl (Sublimaze) 100 mcg EPIDUR Q3H PRN PRN Reason: Pain Last Admin: 01/12/19 23:12 Dose: 100 mcg Fentanyl/Bupivacaine HCl (Qlfhmujg-Mtqes-Ub 2 Mcg/Ml-0.125%) 100 ml EP ASDIRECTED PETRA Last Admin: 01/12/19 23:12 Dose: 100 ml Fentanyl/Bupivacaine HCl (Iltfhbwy-Jxuuw-Tw 2 Mcg/Ml-0.125%) 50 ml EP ASDIRECTED PETRA Lactated Ringer's (Ringers, Lactated) 1,000 mls @ 40 mls/hr IV ASDIRECTED PETRA Last Admin: 01/13/19 01:13 Dose: 40 mls/hr Oxytocin/Lactated Ringer's (Pitocin In Lr 10 Units/1,000 Ml) 10 unit in 1,000 mls @ 12 mls/hr IV TITRATE PETRA; Protocol Oxytocin/Lactated Ringer's (Pitocin In Lr 10 Units/1,000 Ml) 10 unit in 1,000 mls @ 500 mls/hr IV .CONTINUOUS PETRA Nalbuphine HCl (Nubain) 10 mg IVPUSH Q2H PRN PRN Reason: pain Ondansetron HCl (Zofran) 4 mg IVPUSH Q4H PRN PRN Reason: Nausea/Vomiting Sodium Chloride (Saline Flush) 10 ml FLUSH ASDIRECTED PRN PRN Reason: Keep Vein Open - Problem List & Annotations (1) 40 weeks gestation of SNOMED Code(s): 41449936 Code(s): Z3A.40 - 40 WEEKS GESTATION OF Status: Acute Current Visit: No (2) Vaginal delivery SNOMED Code(s): 562350535 Code(s): O80 - ENCOUNTER FOR FULL-TERM UNCOMPLICATED DELIVERY Status: Acute Current Visit: No - Problem List Review Problem List Initiated/Reviewed/Updated: Yes - My Orders Last 24 Hours: My Active Orders 01/12/19 19:05 Patient Status [ADT] Routine Activity as Tolerated [RC] PFP Communication Order [RC] ASDIRECTED Communication Order [RC] ASDIRECTED Communication Order [RC] ASDIRECTED Monitoring [RC] INTERMITTENT Non Stress Test [RC] PER UNIT ROUTINE Notify Provider [RC] ASDIRECTED Notify Provider [RC] PRN Vaginal Exam [RC] ASDIRECTED Vital Signs [RC] ASDIRECTED Nalbuphine [Nubain] 10 mg IVPUSH Q2H PRN Ondansetron [Zofran] 4 mg IVPUSH Q4H PRN Sodium Chloride 0.9% [Saline Flush] 10 ml FLUSH ASDIRECTED PRN Electronic Heart Tones Internal [WOMSER] Per Unit Routine Peripheral IV Insertion Adult [OM.PC] Routine Resuscitation Status Routine 01/12/19 19:06 Peripheral IV Care [RC] . DIRECTED 01/12/19 19:15 Lactated Ringers [Ringers, Lactated] 1,000 ml IV ASDIRECTED Oxytocin/Lactated Ringers [Pitocin in LR 10 Units/1,000 ML] 10 unit in 1,000 ml IV .CONTINUOUS Oxytocin/Lactated Ringers [Pitocin in LR 10 Units/1,000 ML] 10 unit in 1,000 ml IV TITRATE 01/12/19 19:25 RAPID PLASMA REAGIN,RPR [CHEM] Routine 01/12/19 Dinner Regular Diet [DIET] - Assessment Assessment:: 28 y/o G3 now P3003 PPD#0 from at 40 0/7 wks - Plan Plan:: * Routine cares * Encourage breast feeding * Discharge home in 1-2 days
[2019-01-13] MEDS ORDERED: Lanolin 100% Cream 7 GM Tube TOP PRN (03:05)
[2019-01-13] MEDS ORDERED: Acetaminophen 325 MG Tab PO PRN (03:05)
[2019-01-13] MEDS ORDERED: Witch Hazel Medicated Pads 100/Jar TOP PRN (03:05)
[2019-01-13] MEDS ORDERED: Docusate Sodium 100 MG Cap PO PRN (03:05)
[2019-01-13] MEDS ORDERED: Benzocaine/Menthol 20%-0.5% Spray 56 GM Canister TOP PRN (03:05)
--- NOTE | 2019-01-13 08:05 | PCM48HPAN ---
Post Anesthesia Note - EVALUATION WITHIN 48HRS OF ANESTHETIC Vital Signs in Normal Range: Yes Patient Participated in Evaluation: Yes Respiratory Function Stable: Yes Airway Patent: Yes Cardiovascular Function Stable: Yes Hydration Status Stable: Yes Pain Control Satisfactory: Yes Nausea and Vomiting Control Satisfactory: Yes Mental Status Recovered: Yes - COMMENTS/OBSERVATIONS Free Text/Narrative:: Patients back is sore around the epidural insertion site. Educated patient that in rare instances, back pain persist up to 2 months. Pt denies any other anesthesia complications
[2019-01-13] MEDS: Ibuprofen 600 MG Tab PO PRN ×3 (09:25→23:26)
[2019-01-14] MEDS: Ibuprofen 600 MG Tab PO PRN ×2 (09:29→19:08)
--- NOTE | 2019-01-14 11:40 | PCM.SN ---
- Free Text/Narrative Note: Post Progress Note PPD # 1 Subjective: Doing well overall. Ambulating without difficulty. Lochia minimal. Voiding without difficulty. Tolerating regular diet without nausea or vomiting. Pain overall controlled with oral medications. Breast-feeding with minimal difficulty. Objective: Vitals: Vital Signs - 24 hr 01/13/19 01/13/19 01/13/19 13:11 15:14 20:15 Temperature 36.7 C 36.7 C Temperature [ Temporal] Pulse, 88 100 93 Peripheral Respiratory 16 16 15 Rate Blood Pressure 134/70 130/77 129/75 O2 Sat by Pulse 99 98 98 Oximetry 01/13/19 01/14/19 01/14/19 21:00 02:50 09:22 Temperature 36.8 C 36.8 C Temperature [ 36.6 C Temporal] Pulse, 96 85 Peripheral Respiratory 16 16 Rate Blood Pressure 114/50 L 130/81 O2 Sat by Pulse 98 98 Oximetry Physical Exam General: Alert and oriented, no acute distress Lungs: Clear to auscultation bilaterally Heart: Regular rate and rhythm Abdomen: Soft, minimal appropriate tenderness, non-distended, fundus midline, nontender, and at the umbilicus Extremities: Trace edema in bilateral lower extremities to mid shins ASSESSMENT: 28-year-old female s/p normal vaginal delivery PPD #1, complicated by asthma, history of depression and ancestry PLAN: Doing well Breast-feeding with minimal difficulty. Assist as needed Lochia minimal. Continue to monitor for appropriate lochia. Continue routine care Anticipate discharge home tomorrow due to status Joel Moya MD 11:38 AM 01/14/2019
[2019-01-15] MEDS ORDERED: Ibuprofen 600 MG Tab ONE (02:37)
--- NOTE | 2019-01-15 10:03 | PCM.SN ---
- Free Text/Narrative Note: Post Progress Note PPD # 2 Subjective: Doing well overall. Ambulating without difficulty. Lochia minimal. Voiding without difficulty. Tolerating regular diet without nausea or vomiting. Pain overall controlled with oral medications. Breast-feeding with minimal difficulty. Objective: Vitals: Vital Signs - 24 hr 01/14/19 01/14/19 14:38 20:22 Temperature 36.6 C 36.6 C Pulse, 101 H 104 H Peripheral Respiratory 16 16 Rate Blood Pressure 134/72 132/74 O2 Sat by Pulse 98 98 Oximetry Physical Exam General: Alert and oriented, no acute distress Lungs: Clear to auscultation bilaterally Heart: Regular rate and rhythm Abdomen: Soft, minimal appropriate tenderness, non-distended, fundus midline, nontender, and at the umbilicus Extremities: No edema ASSESSMENT: 28-year-old female s/p normal vaginal delivery PPD #2, complicated by asthma, history of depression and ancestry PLAN: Doing well Breast-feeding with minimal difficulty. Assist as needed Lochia minimal. Continue to monitor for appropriate lochia. Continue routine care Discharge home today Joel Moya MD 10:02 AM 01/15/2019
--- NOTE | 2019-01-15 10:09 | PCM.DCSUM1 ---
Discharge Summary - Hospital Course Free Text/Narrative:: - General Info Date of Service: 01/13/19 - Delivery Note Labor: Induced by ARM Delivery Outcome: Livebirth Infant Delivery Method: Spontaneous Vaginal Delivery-Single Infant Delivery Mode: Spontaneous Presentation: Right Occiput Anterior (JONATHAN) Nuchal Cord: Present (not able to be reduced) Anesthesia Type: Epidural Amniotic Fluid Description: Clear Episiotomy Type: None Laceration: None Placenta: Intact, Spontaneous Cord: 3 Vessels Estimated Blood Loss: 200 Resuscitation Needed: Yes : Bulb Syringe, Stimulated, Warmed, [place] Used, Warmer Used Delivery Comments (Free Text/Narrative):: Patient found to be complete and began pushing. With maternal pushing effort head delivered from an JONATHAN presentation. Nuchal cord present, but tight and not reduced. With gentle downward traction the shoulders and body delivered. placed on maternal abdomen. Cord clamped and cut. Cord blood obtained. Placenta allowed time to separate and expelled intact. Inspection of the perineum showed no lacerations HPI Initial Comments: - General Info Date of Service: 01/13/19 - Delivery Note Labor: Induced by ARM Delivery Outcome: Livebirth Infant Delivery Method: Spontaneous Vaginal Delivery-Single Delivery Mode: Spontaneous Presentation: Right Occiput Anterior (JONATHAN) Nuchal Cord: Present (not able to be reduced) Anesthesia Type: Epidural Amniotic Fluid Description: Clear Episiotomy Type: None Laceration: None Placenta: Intact, Spontaneous Cord: 3 Vessels Estimated Blood Loss: 200 Resuscitation Needed: Yes : Bulb Syringe, Stimulated, Warmed, [place] Used, Warmer Used Delivery Comments (Free Text/Narrative):: Patient found to be complete and began pushing. With maternal pushing effort head delivered from an JONATHAN presentation. Nuchal cord present, but tight and not reduced. With gentle downward traction the shoulders and body delivered. Infant placed on maternal abdomen. Cord clamped and cut. Cord blood obtained. Placenta allowed time to separate and expelled intact. Inspection of the perineum showed no lacerations Brief History: - General Info. Date of Service: 01/13/19. - Delivery Note. Labor: Induced by ARM. Delivery Outcome: Livebirth. Infant Delivery Method: Spontaneous Vaginal Delivery-Single. Infant Delivery Mode: Spontaneous. Presentation: Right Occiput Anterior (JONATHAN). Nuchal Cord: Present (not able to be reduced). Anesthesia Type: Epidural. Amniotic Fluid Description: Clear. Episiotomy Type: None. Laceration: None. Placenta: Intact, Spontaneous. Cord : 3 Vessels. Estimated Blood Loss: 200. Resuscitation Needed: Yes. [place]: Bulb Syringe, Stimulated, Warmed, [place] Used, Warmer Used. Delivery Comments (Free Text/Narrative):: Patient found to be complete and began pushing. With maternal pushing effort head delivered from an JONATHAN presentation. Nuchal cord present, but tight and not reduced. With gentle downward traction the shoulders and body delivered. placed on maternal abdomen. Cord clamped and cut. Cord blood obtained. Placenta allowed time to separate and expelled intact. Inspection of the perineum showed no lacerations Diagnosis: Stroke: No - Discharge Data Discharge Date: 01/15/19 Discharge Disposition: Home, Self-Care 01 Condition: Good - Discharge Diagnosis/Problem(s) (1) Asthma affecting , antepartum SNOMED Code(s): 353626873, 183613201 ICD Code: O99.519 - DISEASES OF THE RESP SYS COMP , UNSP TRIMESTER; J45.909 - UNSPECIFIED ASTHMA, UNCOMPLICATED Status: Acute Current Visit: Yes (2) History of depression SNOMED Code(s): 326104718 ICD Code: Z87.59 - PERSONAL HISTORY OF COMP OF PREG, CHLDBRTH AND THE PUERP; Z86.59 - PERSONAL HISTORY OF OTHER MENTAL AND BEHAVIORAL DISORDERS Status: Acute Current Visit: Yes (3) History of depression, currently SNOMED Code(s): 208998385 ICD Code: O99.89 - OTH DISEASES AND CONDITIONS COMPL PREG/CHLDBRTH; Z86.59 - PERSONAL HISTORY OF OTHER MENTAL AND BEHAVIORAL DISORDERS Status: Acute Current Visit: Yes (4) ancestry requiring population-specific genetic screening SNOMED Code(s): 40377257, 956729583, 712842624 ICD Code: Z13.79 - ENCNTR FOR OTH SCREENING FOR GENETIC AND CHROMSOML ANOMALIES Status: Acute Current Visit: Yes (5) 40 weeks gestation of SNOMED Code(s): 17609471 ICD Code: Z3A.40 - 40 WEEKS GESTATION OF Status: Acute Current Visit: No (6) Vaginal delivery SNOMED Code(s): 310891668 ICD Code: O80 - ENCOUNTER FOR FULL-TERM UNCOMPLICATED DELIVERY Status: Acute Current Visit: No - Patient Summary/Data Operative Procedure(s) Performed: None Complications: None Hospital Course: Anamaria Thomas was admitted for elective induction of labor. On admission her cervix was dilated to 3-4 cm. She was GBS negative. She was given an epidural for anesthesia. She had artificial rupture of membranes with clear fluid. She progressed to complete and began pushing. On 01/13/2019 she had a normal vaginal delivery of a live female infant at 0136. Apgars of 7 and 9. Weight of 3730 g (8 pounds 3.6 ounces). Her course was uneventful. Her pain was well controlled and she had minimal lochia. She was ambulating, tolerating a regular diet and voiding normally. She was breast-feeding with minimal difficulty. She was afebrile and her hematocrit was 36.7 on admission. She desired to be discharged home on the morning of PPD #2. Her blood type is O+. - Patient Instructions Diet: Regular Diet as Tolerated Activity: Apply Ice, As Tolerated Activity, Other: Nothing in the vagina for 6 weeks Driving: May Drive Today Showering/Bathing: May Shower Notify Provider of: Fever, Increased Pain, Swelling and Redness, Drainage, Nausea and/or Vomiting Other/Special Instructions: Please contact your physician's office if you have heavy vaginal bleeding enough to soak a pad in less than an hour for several hours. Monitor for any signs of an infection in the breasts with severe pain or redness of the breast. - Discharge Plan *PRESCRIPTION DRUG MONITORING PROGRAM REVIEWED*: Not Applicable *COPY OF PRESCRIPTION DRUG MONITORING REPORT IN PATIENT ESTEVAN: Not Applicable Home Medications: Home Meds Vits #93/Iron Fum/FA [ Formula Tablet] 05/20/17 [History] Ibuprofen [IJD: Ibuprofen] 600 mg PO Q6H PRN #30 tablet 05/22/17 [Rx] Acetaminophen [Tylenol] 650 mg PO Q4H PRN tablet 01/15/19 [Rx] Benzocaine/Menthol [Dermoplast Pain Relief [place]] 1 spray TOP ASDIRECTED PRN canister 01/15/19 [Rx] Docusate Sodium [Colace] 100 mg PO BID PRN cap 01/15/19 [Rx] Lanolin [Lansinoh HPA] 1 applic TOP ASDIRECTED PRN tube 01/15/19 [Rx] Witch Geri [Tucks] 1 pad TOP ASDIRECTED PRN pad 01/15/19 [Rx] Patient Handouts: Depression, Vaginal Delivery, Care After Referrals: Rachel Portillo MD [Physician] - (Follow-up in 3-6 weeks for routine visit or earlier as needed.) - Discharge Summary/Plan Comment DC Time >30 min.: No - Patient Data Vitals - Most Recent: Last Vital Signs Temp 36.6 C 01/14/19 20:22 Pulse 104 H 01/14/19 20:22 Resp 16 01/14/19 20:22 BP 132/74 01/14/19 20:22 Pulse Ox 98 01/14/19 20:22 Weight - Most Recent: 94.801 kg Med Orders - Current: Current Medications Acetaminophen (Tylenol) 650 mg PO Q4H PRN PRN Reason: mild pain or fever Last Admin: 01/13/19 20:23 Dose: 650 mg Benzocaine/Menthol (Dermoplast Pain Relief [place]) 0 gm TOP ASDIRECTED PRN PRN Reason: Perineal Comfort Measure Last Admin: 01/14/19 09:28 Dose: 1 spray Docusate Sodium (Colace) 100 mg PO BID PRN PRN Reason: Constipation Emollient Ointment (Lansinoh Hpa) 0 gm TOP ASDIRECTED PRN PRN Reason: Sore Nipples Ibuprofen (Motrin) 600 mg PO Q6H PRN PRN Reason: Mild pain or fever Last Admin: 01/14/19 19:08 Dose: 600 mg Witch Geri (Tucks) 1 pad TOP ASDIRECTED PRN PRN Reason: Hemorrhoid pain Last Admin: 01/14/19 09:28 Dose: 1 pad Discontinued Medications Bupivacaine HCl (Sensorcaine-Mpf 0.25%) 10 ml .ROUTE .STK-MED ONE Stop: 01/12/19 22:01 Diphenhydramine HCl (Benadryl) 25 mg IVPUSH Q6H PRN PRN Reason: pruritis Ephedrine Sulfate (Ephedrine Sulfate) 5 mg IVPUSH ASDIRECTED PRN PRN Reason: Hypotension Fentanyl (Sublimaze) 100 mcg EPIDUR Q3H PRN PRN Reason: Pain Last Admin: 01/12/19 23:12 Dose: 100 mcg Fentanyl/Bupivacaine HCl (Dfgrbddh-Dmdvw-Tz 2 Mcg/Ml-0.125%) 100 ml EP ASDIRECTED PETRA Last Admin: 01/12/19 23:12 Dose: 100 ml Fentanyl/Bupivacaine HCl (Wwjexwux-Vedrx-Cf 2 Mcg/Ml-0.125%) 50 ml EP ASDIRECTED PETRA Lactated Ringer's (Ringers, Lactated) 1,000 mls @ 40 mls/hr IV ASDIRECTED PETRA Last Admin: 01/13/19 01:13 Dose: 40 mls/hr Oxytocin/Lactated Ringer's (Pitocin In Lr 10 Units/1,000 Ml) 10 unit in 1,000 mls @ 12 mls/hr IV TITRATE PETRA; Protocol Oxytocin/Lactated Ringer's (Pitocin In Lr 10 Units/1,000 Ml) 10 unit in 1,000 mls @ 500 mls/hr IV .CONTINUOUS PETRA Last Admin: 01/13/19 01:40 Dose: 500 mls/hr Lidocaine/Epinephrine (Xylocaine-Mpf 1.5% W/Epinephrine 1:200,000) 5 ml .ROUTE .[facility]-MED ONE Stop: 01/12/19 22:01 Nalbuphine HCl (Nubain) 10 mg IVPUSH Q2H PRN PRN Reason: pain Ondansetron HCl (Zofran) 4 mg IVPUSH Q4H PRN PRN Reason: Nausea/Vomiting Sodium Chloride (Saline Flush) 10 ml FLUSH ASDIRECTED PRN PRN Reason: Keep Vein Open
[2019-01-15 13:43] VITALS: BP 121/83
== END 2019-01-15 11:15 | disposition home or self-care (01) | DRG 560 ==
LOC: JD.OBCHECK 18:57 → JD.OB 19:02 → JD.OBCHECK 19:05 → JD.OB 19:05 → OBSVTOIN 01-13 01:36 → JD.MS 01-13 01:37 → JD.OB 01-13 13:53
PROVIDERS: ADMIT Obstetrics & Gynecology; ATTEND Obstetrics & Gynecology
PROC: 10E0XZZ Delivery of Products of Conception, External Approach (ICD-10-PCS; principal; 2019-01-13)
PROC: 10907ZC Drainage of Amniotic Fluid, Therapeutic from Products of Conception, Via Natural or Artificial Opening (ICD-10-PCS; 2019-01-13)
PROC: 00HU33Z Insertion of Infusion Device into Spinal Canal, Percutaneous Approach (ICD-10-PCS; 2019-01-13)
PROC: 3E0R3BZ Introduction of Anesthetic Agent into Spinal Canal, Percutaneous Approach (ICD-10-PCS; 2019-01-13)
DX: O69.81X0 Labor and delivery complicated by cord around neck, without compression, not applicable or unspecified (principal); O99.52 Diseases of the respiratory system complicating childbirth; J45.909 Unspecified asthma, uncomplicated; Z3A.40 40 weeks gestation of pregnancy; Z37.0 Single live birth; Z87.59 Personal history of other complications of pregnancy, childbirth and the puerperium; Z86.59 Personal history of other mental and behavioral disorders
CPT/HCPCS: 36415; 51702; 59025; 59409; 85027; 86592; 86850; 86900; 86901; A9270-GY; J2590; J3010; J3490; J7120

== ENCOUNTER 2020-11-20 04:49 | Inpatient (IN) | payer MEDICAID ==
[2020-11-20] MEDS ORDERED: Ampicillin 2 GM in Sodium Chloride 0.9% 100 ML IV ONE (19:27)
[2020-11-20] MEDS ORDERED: Nalbuphine 10 MG/1 ML Vial IVPUSH PRN (19:27)
[2020-11-20] MEDS ORDERED: Sodium Chloride 0.9% 10 ML Syringe FLUSH PRN (19:27)
[2020-11-20] MEDS ORDERED: Ondansetron 4 MG/2 ML SDV IVPUSH PRN (19:27)
[2020-11-20] MEDS ORDERED: Oxytocin/Lactated Ringers 10 UNIT/1,000 ML BAG IV SCH ×2 (19:30)
--- NOTE | 2020-11-20 19:40 | PCM.LDHP ---
L&D History of Present Illness - General Date of Service: 11/20/20 Admit Problem/Dx: Patient Status Order with Admit Dx/Problem 11/20/20 19:27 Patient Status [ADT] Routine Admission Diagnosis/Problem Admission Diagnosis/Problem Normal in third trimester Source of Information: Patient History Limitations: Reports: No Limitations - History of Present Illness Introduction:: Patient is a 30 y/o at 39 5/7 wks presents for IOL. Doing well today. No concerns. Had a slight headache earlier today, but has since resolved. - Related Data Allergies/Adverse Reactions: Allergies Allergy/AdvReac Type Severity Reaction Status Date / Time banana Allergy Itching Verified 11/12/19 17:45 [employer]GROUND WORK[employer] Home Medications: Home Meds Vits #93/Iron Fum/FA [ Formula Tablet] 1 mg PO ASDIRECTED 05/20/17 [History] Ibuprofen [IJD: Ibuprofen] 600 mg PO Q6H PRN #30 tablet 05/22/17 [Rx] Acetaminophen [Tylenol] 650 mg PO Q4H PRN tablet 01/15/19 [Rx] Benzocaine/Menthol [Dermoplast Pain Relief [place]] 1 spray TOP ASDIRECTED PRN canister 01/15/19 [Rx] Docusate Sodium [Colace] 100 mg PO BID PRN cap 01/15/19 [Rx] Lanolin [Lansinoh HPA] 1 applic TOP ASDIRECTED PRN tube 01/15/19 [Rx] witch Junior [Tucks] 1 pad TOP ASDIRECTED PRN pad 01/15/19 [Rx] Past Medical History Respiratory History: Reports: Asthma 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: 3 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 (Approximate): Psychiatric History: Reports: Depression - Infectious Disease History Infectious Disease History: Reports: Chicken Pox - Past Surgical History HEENT Surgical History: Reports: Eye Surgery Endocrine Surgical History: Reports: None Neurological Surgical History: Reports: None Musculoskeletal Surgical History: Reports: None Oncologic Surgical History: Reports: None Dermatological Surgical History: Reports: None Social & Family History - Family History Family Medical History: No Pertinent Family History Cardiac: Reports: Stent - Tobacco Use Tobacco Use Status *Q: Never Tobacco User - Caffeine Use Caffeine Use: Reports: None - Alcohol Use Alcohol Use History: No - Recreational Drug Use Recreational Drug Use: No - Living Situation & Occupation Living situation: Reports: Single, with Significant Other, with Family H&P Review of Systems - Review of Systems: Review Of Systems: See Below General: Reports: No Symptoms Pulmonary: Reports: No Symptoms Cardiovascular: Reports: No Symptoms Gastrointestinal: Reports: No Symptoms Genitourinary: Reports: No Symptoms Musculoskeletal: Reports: No Symptoms Psychiatric: Reports: No Symptoms L&D Exam - Exam Exam: See Below - OB Specific Contraction Intensity: Irritability Movement: Active Heart Tones: Present Heart Tones per Min: 130 Heart Rate (FHR) Variability: Moderate (6-25 bmp) Presentation: Vertex - Melendrez Score Melendrez Score Cervix Position: Midposition Melendrez Score Consistency: Soft Melendrez Score Effacement: 31-50% Melendrez Score Dilation: 3-4 cm Melendrez Score Infant's Station: -2 Melendrez Score Total: 7 - Exam General: Alert, Oriented, Cooperative Lungs: Clear to Auscultation, Normal Respiratory Effort Cardiovascular: Regular Rate, Regular Rhythm GI/Abdominal Exam: Soft, Non-Tender Genitourinary: Normal external exam Extremities: Normal Inspection - Patient Data Result Diagrams: 11/20/20 19:41 11/20/20 19:41 - Problem List (1) 39 weeks gestation of SNOMED Code(s): 96781375 ICD Code: Z3A.39 - 39 WEEKS GESTATION OF Status: Acute Current Visit: Yes (2) Insufficient care SNOMED Code(s): 0005757864992 ICD Code: O09.30 - SUPRVSN OF PREG W INSUFFICIENT ANTENAT CARE, UNSP TRIMESTER Status: Acute Current Visit: Yes Qualifiers: Trimester: third trimester Qualified Code(s): O09.33 - Supervision of with insufficient care, third trimester (3) GBS (group B Streptococcus carrier), +RV culture, currently SNOMED Code(s): 8024260003733, 040968995, 0389030807877 ICD Code: O99.820 - STREPTOCOCCUS B CARRIER STATE COMPLICATING Status: Acute Current Visit: Yes Problem List Initiated/Reviewed/Updated: Yes Orders Last 24hrs: Active Orders 24 hr Category Date Time Status Patient Status [ADT] Routine ADT 11/20/20 19:27 Ordered Communication Order [RC] ASDIRECTED Care 11/20/20 19:27 Ordered Communication Order [RC] ASDIRECTED Care 11/20/20 19:27 Ordered Communication Order [RC] ASDIRECTED Care 11/20/20 19:27 Ordered Non Stress Test [RC] PER UNIT ROUTINE Care 11/20/20 19:27 Ordered Notify Provider [RC] ASDIRECTED Care 11/20/20 19:27 Ordered Notify Provider [RC] PRN Care 11/20/20 19:27 Ordered Peripheral IV Care [RC] . DIRECTED Care 11/20/20 19:27 Ordered Vaginal Exam [RC] ASDIRECTED Care 11/20/20 19:27 Ordered Vital Signs [RC] ASDIRECTED Care 11/20/20 19:27 Ordered Regular Diet [DIET] Diet 11/20/20 Dinner Ordered ALANINE AMINOTRANSFERASE,ALT [CHEM] Routine Lab 11/20/20 19:30 Ordered ASPARTATE AMNIOTRANSFERASE,AST [CHEM] Routine Lab 11/20/20 19:30 Ordered CBC W/O DIFF,HEMOGRAM [HEME] Stat Lab 11/20/20 19:27 Ordered CORONAVIRUS COVID-19 ISIDRO [MOLEC] Stat Lab 11/20/20 19:29 Ordered CREATININE W/GFR [CHEM] Routine Lab 11/20/20 19:30 Ordered PROTEIN/CREATININE RATIO,URINE [URCHEM] Routine Lab 11/20/20 19:30 Ordered RAPID PLASMA REAGIN,RPR [CHEM] Routine Lab 11/20/20 19:27 Ordered TYPE AND SCREEN [BBK] Stat Lab 11/20/20 19:27 Ordered Ampicillin 1 gm Med 11/20/20 19:30 Ordered Sodium Chloride 0.9% [Normal Saline] 100 ml IV Q4H Ampicillin 2 gm Med 11/20/20 19:27 Ordered Sodium Chloride 0.9% [Normal Saline] 100 ml IV ONETIME Lactated Ringers [Ringers, Lactated] 1,000 ml Med 11/20/20 19:30 Ordered IV ASDIRECTED Nalbuphine [Nubain] Med 11/20/20 19:27 Ordered 10 mg IVPUSH Q2H PRN Ondansetron [Zofran] Med 11/20/20 19:27 Ordered 4 mg IVPUSH Q4H PRN Oxytocin/Lactated Ringers [Pitocin in LR 10 Units/1,000 Med 11/20/20 19:30 Ordered ML] 10 unit in 1,000 ml IV .CONTINUOUS Oxytocin/Lactated Ringers [Pitocin in LR 10 Units/1,000 Med 11/20/20 19:30 Ordered ML] 10 unit in 1,000 ml IV TITRATE Sodium Chloride 0.9% [Saline Flush] Med 11/20/20 19:27 Ordered 10 ml FLUSH ASDIRECTED PRN Electronic Heart Tones Internal [WOMSER] Per Unit Oth 11/20/20 19:27 Ordered Routine Peripheral IV Insertion Adult [OM.PC] Routine Oth 11/20/20 19:27 Ordered Resuscitation Status Routine Resus Stat 11/20/20 19:27 Ordered Medication Orders Oxytocin/Lactated Ringer's (Pitocin In Lr 10 Units/1,000 Ml) 10 unit in 1,000 mls @ 12 mls/hr IV TITRATE PETRA; Protocol Ampicillin Sodium 2 gm/ Sodium (Chloride) 100 mls @ 200 mls/hr IV ONETIME ONE Stop: 11/20/20 19:56 Ampicillin Sodium 1 gm/ Sodium (Chloride) 100 mls @ 200 mls/hr IV Q4H PETRA Oxytocin/Lactated Ringer's (Pitocin In Lr 10 Units/1,000 Ml) 10 unit in 1,000 mls @ 500 mls/hr IV .CONTINUOUS PETRA Lactated Ringer's (Ringers, Lactated) 1,000 mls @ 40 mls/hr IV ASDIRECTED PETRA Nalbuphine HCl (Nubain) 10 mg IVPUSH Q2H PRN PRN Reason: Pain Ondansetron HCl (Zofran) 4 mg IVPUSH Q4H PRN PRN Reason: Nausea/Vomiting Sodium Chloride (Saline Flush) 10 ml FLUSH ASDIRECTED PRN PRN Reason: Keep Vein Open Assessment/Plan Comment:: * Labs * GBS positive, Ampicillin for prophylaxis * Pitocin and AROM for IOL * Pain management per patient preference * Initial pressure mild range, AST, ALT, Creatinine, Urine protein:creatinine ratio * Anticipate
[2020-11-20] MEDS: Lactated Ringers 1,000 ML IV SCH ×2 (20:47→23:06)
[2020-11-20] MEDS ORDERED: ePHEDrine 50 MG/ML SDV IVPUSH PRN (22:29)
[2020-11-20] MEDS ORDERED: fentaNYL 100 MCG/2 ML SDV EPIDUR PRN (22:29)
[2020-11-20] MEDS ORDERED: Bupivacaine/fentaNYL/NS 100 ML Bag EPIDUR PRN (22:29)
[2020-11-20] MEDS ORDERED: diphenhydrAMINE 50 MG/ML SDV IVPUSH PRN (22:29)
--- NOTE | 2020-11-20 22:55 | PCM.PREANE ---
Preanesthetic Assessment - Procedure Proposed Procedure: Continuous labor epidural - Anesthesia/Transfusion/Family Hx Anesthesia History: Prior Anesthesia Without Reaction (difficult epidural in the past) Transfusion History: No Prior Transfusion(s) Type of Transfusion Reactions: Reports: Unknown Intubation History: Unknown - Review of Systems General: No Symptoms Pulmonary: No Symptoms Cardiovascular: No Symptoms Gastrointestinal: No Symptoms Neurological: No Symptoms Other: Reports: None - Physical Assessment Vital Signs: Last Vital Signs Temp 98.9 F 11/20/20 19:45 Pulse 89 11/20/20 20:51 Resp 18 11/20/20 19:45 BP 121/65 11/20/20 20:51 Pulse Ox 98 11/20/20 19:45 Height: 1.65 m Weight: 94.347 kg ASA Class: 2 Mental Status: Alert & Oriented x3 Airway Class: Mallampati = 1 Dentition: Reports: Normal Dentition Thyro-Mental Finger Breadths: 3 Mouth Opening Finger Breadths: 3 ROM/Head Extension: Full Lungs: Clear to Auscultation, Normal Respiratory Effort Cardiovascular: Regular Rate, Regular Rhythm - Lab Values: Laboratory Last Values WBC 11.93 K/mm3 (3.98-10.04) H 11/20/20 19:41 RBC 4.21 M/mm3 (3.98-5.22) 11/20/20 19:41 Hgb 8.3 gm/dl (11.2-15.7) L D 11/20/20 19:41 Hct 28.7 % (34.1-44.9) L 11/20/20 19:41 MCV 68.2 fl (79.4-94.8) L D 11/20/20 19:41 MCH 19.7 pg (25.6-32.2) L 11/20/20 19:41 MCHC 28.9 g/dl (32.2-35.5) L 11/20/20 19:41 RDW Std Deviation 48.8 fL (36.4-46.3) H 11/20/20 19:41 Plt Count 282 K/mm3 (182-369) 11/20/20 19:41 MPV 10.0 fl (9.4-12.3) 11/20/20 19:41 Creatinine 0.7 mg/dL (0.55-1.02) 11/20/20 19:41 Est Cr Clr Drug Dosing TNP 11/20/20 19:41 Estimated GFR (MDRD) > 60 mL/min (>60) 11/20/20 19:41 AST 16 U/L (15-37) 11/20/20 19:41 ALT 12 U/L (14-59) L 11/20/20 19:41 Ur Random Creatinine 154.0 mg/dL (30.0-125.0) H 11/20/20 21:20 U Random Total Protein 26.5 mg/dL (0.0-11.8) H 11/20/20 21:20 Protein/Creatinin Ratio 172.1 mg/g (0-149) H 11/20/20 21:20 Urine Opiates Screen Negative (GFZRJZ=616) 11/20/20 21:20 Ur Buprenorphine Scrn Negative (CUTOFF=10) 11/20/20 21:20 Ur Oxycodone Screen Negative (HVG7QF=586) 11/20/20 21:20 Urine Methadone Screen Negative (LYSKCK=797) 11/20/20 21:20 Ur Propoxyphene Screen Negative (OQOSWX=147) 11/20/20 21:20 Ur Barbiturates Screen Negative (WJGWTG=471) 11/20/20 21:20 Ur Tricyclics Screen Negative (KOUXVN=516) 11/20/20 21:20 Ur Phencyclidine Scrn Negative (CUTOFF=25) 11/20/20 21:20 Ur Amphetamine Screen Negative (VWZXRA=993) 11/20/20 21:20 U Methamphetamines Scrn Negative (QBYXFG=351) 11/20/20 21:20 U Benzodiazepines Scrn Negative (HNSVIK=538) 11/20/20 21:20 U Cocaine Metab Screen Negative (GZSMPW=742) 11/20/20 21:20 U Marijuana (THC) Screen Negative (CUTOFF=50) 11/20/20 21:20 RPR Non-reactive (NONREACTIVE) 11/20/20 19:41 SARS-CoV-2 RNA (ISIDRO) Negative (NEGATIVE) 11/20/20 20:05 Blood Type O POSITIVE 11/20/20 19:41 Gel Antibody Screen Negative 11/20/20 19:41 - Allergies Allergies/Adverse Reactions: Allergies Allergy/AdvReac Type Severity Reaction Status Date / Time banana Allergy Itching Verified 11/20/20 22:42 - Acknowledgements Anesthesia Type Planned: Epidural Pt an Appropriate Candidate for the Planned Anesthesia: Yes Alternatives and Risks of Anesthesia Discussed w Pt/Guardian: Yes Pt/Guardian Understands and Agrees with Anesthesia Plan: Yes PreAnesthesia Questionnaire HEENT History: Reports: None Cardiovascular History: Reports: Other (See Below) Other Cardiovascular History: Transient hypertension in preg Respiratory History: Reports: Asthma Gastrointestinal History: Reports: GERD 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 Pt wanting to try different medication PP. Dermatologic History: Reports: Eczema - Infectious Disease History Infectious Disease History: Reports: Chicken Pox - Past Surgical History HEENT Surgical History: Reports: Eye Surgery Endocrine Surgical History: Reports: None Neurological Surgical History: Reports: None Musculoskeletal Surgical History: Reports: None Oncologic Surgical History: Reports: None Dermatological Surgical History: Reports: None - SUBSTANCE USE Tobacco Use Status *Q: Never Tobacco User Recreational Drug Use History: No - HOME MEDS Home Medications: Home Meds Sertraline [Zoloft] 100 mg PO DAILY 11/20/20 [History] - CURRENT (IN HOUSE) MEDS Current Meds: Current Medications Diphenhydramine HCl (Benadryl) 25 mg IVPUSH Q6H PRN PRN Reason: pruritis Ephedrine Sulfate (Ephedrine Sulfate) 5 mg IVPUSH ASDIRECTED PRN PRN Reason: Hypotension Fentanyl (Sublimaze) 100 mcg EPIDUR Q3H PRN PRN Reason: Pain Fentanyl/Bupivacaine HCl (Fentanyl/Bupivacaine/Ns 2 Mcg-0.125% 100 Ml) 100 ml EPIDUR ASDIRECTED PRN PRN Reason: Pain Oxytocin/Lactated Ringer's (Pitocin In Lr 10 Units/1,000 Ml) 10 unit in 1,000 mls @ 12 mls/hr IV TITRATE PETRA; Protocol Last Admin: 11/20/20 20:47 Dose: 2 munits/min, 12 mls/hr Documented by: Ampicillin Sodium 1 gm/ Sodium (Chloride) 100 mls @ 200 mls/hr IV Q4H PETRA Oxytocin/Lactated Ringer's (Pitocin In Lr 10 Units/1,000 Ml) 10 unit in 1,000 m ls @ 500 mls/hr IV .CONTINUOUS PETRA Lactated Ringer's (Ringers, Lactated) 1,000 mls @ 40 mls/hr IV ASDIRECTED PETRA Last Admin: 11/20/20 20:47 Dose: 40 mls/hr Documented by: Nalbuphine HCl (Nubain) 10 mg IVPUSH Q2H PRN PRN Reason: Pain Ondansetron HCl (Zofran) 4 mg IVPUSH Q4H PRN PRN Reason: Nausea/Vomiting Sodium Chloride (Saline Flush) 10 ml FLUSH ASDIRECTED PRN PRN Reason: Keep Vein Open Discontinued Medications Ampicillin Sodium 2 gm/ Sodium (Chloride) 100 mls @ 200 mls/hr IV ONETIME ONE Stop: 11/20/20 19:56 Last Admin: 11/20/20 20:46 Dose: 200 mls/hr Documented by:
[2020-11-21] MEDS ORDERED: Lidocaine 1.5% with EPINEPHrine 1:200,000 5 ML Amp ONE
[2020-11-21] MEDS: Lactated Ringers 1,000 ML IV SCH (00:06)
[2020-11-21] MEDS: Ampicillin 1 GM in Sodium Chloride 0.9% 100 ML IV SCH ×2 (00:06→03:41)
[2020-11-21] MEDS ORDERED: Methylergonovine 0.2 MG/1 ML Amp ONE (04:55)
[2020-11-21] MEDS ORDERED: Misoprostol 200 MCG Tab ONE (04:55)
[2020-11-21] MEDS ORDERED: Methylergonovine 0.2 MG/1 ML Amp IM STA (05:13)
[2020-11-21] MEDS ORDERED: Misoprostol 200 MCG Tab PO STA (05:13)
--- NOTE | 2020-11-21 05:19 | PCM.DEL ---
L & D Note - General Info Date of Service: 11/21/20 - Delivery Note Labor: Induced by ARM, Induced by Oxytocin Delivery Outcome: Livebirth Infant Delivery Method: Spontaneous Vaginal Delivery-Single Infant Delivery Mode: Spontaneous Presentation: Left Occiput Anterior (DEDRICK) Nuchal Cord: None Anesthesia Type: Epidural Amniotic Fluid Description: Clear Episiotomy Type: None Laceration: 1st Degree Suture type: Vicryl Suture size: 2-0 Placenta: Intact, Spontaneous Cord: 3 Vessels Estimated Blood Loss: 700 Resuscitation Needed: Yes : Bulb Syringe, Stimulated, Warmed, Taft Used, Warmer Used Delivery Comments (Free Text/Narrative):: Patient found to be complete and began pushing. With maternal pushing effort head delivered from DEDRICK presentation. No nuchal cord. With gentle downward traction the shoulders and body delivered. Infant placed on maternal abdomen. Cord clamped and cut. Cord blood obtained. Placenta allowed time to separate and expelled intact. Immediately after delivery of placenta there was a large amount of bleeding noted. Patient given 600 mcg of buccal cytotec, 0.2mg IM methergine, and had vigorous fundal massage done. Bleeding did nubia with these interventions. Total EBL of 700. Inspection of perineum showed a 1st degree laceration which was repaired with a interrupted 2-0 Vicryl - General Info Date of Service: 11/21/20 - Patient Data Vitals - Most Recent: Last Vital Signs Temp 37.2 C 11/20/20 19:45 Pulse 89 11/20/20 20:51 Resp 18 11/20/20 19:45 BP 121/65 11/20/20 20:51 Pulse Ox 98 11/20/20 19:45 Weight - Most Recent: 94.347 kg - Problem List & Annotations (1) 39 weeks gestation of SNOMED Code(s): 22360152 Code(s): Z3A.39 - 39 WEEKS GESTATION OF Status: Acute Current Visit: Yes (2) Insufficient care SNOMED Code(s): 3689179158167 Code(s): O09.30 - SUPRVSN OF PREG W INSUFFICIENT ANTENAT CARE, UNSP TRIMESTER Status: Acute Current Visit: Yes Qualifiers: Trimester: third trimester Qualified Code(s): O09.33 - Supervision of with insufficient care, third trimester (3) GBS (group B Streptococcus carrier), +RV culture, currently SNOMED Code(s): 0401891284155, 433244518, 2700594559778 Code(s): O99.820 - STREPTOCOCCUS B CARRIER STATE COMPLICATING Status: Acute Current Visit: Yes (4) Anemia affecting SNOMED Code(s): 06098446 Code(s): O99.019 - ANEMIA COMPLICATING , UNSPECIFIED TRIMESTER Status: Acute Current Visit: Yes Qualifiers: Trimester: third trimester Qualified Code(s): O99.013 - Anemia complicating , third trimester (5) Vaginal delivery SNOMED Code(s): 116622539 Code(s): O80 - ENCOUNTER FOR FULL-TERM UNCOMPLICATED DELIVERY Status: Acute Current Visit: No (6) hemorrhage SNOMED Code(s): 98636192 Code(s): O72.1 - OTHER IMMEDIATE HEMORRHAGE Status: Acute Current Visit: Yes Qualifiers: hemorrhage type: other immediate Qualified Code(s): O72.1 - Other immediate hemorrhage - Problem List Review Problem List Initiated/Reviewed/Updated: Yes - My Orders Last 24 Hours: My Active Orders 11/20/20 Dinner Regular Diet [DIET] 11/20/20 19:27 Patient Status [ADT] Routine Communication Order [RC] ASDIRECTED Communication Order [RC] ASDIRECTED Communication Order [RC] ASDIRECTED Notify Provider [RC] ASDIRECTED Notify Provider [RC] PRN Peripheral IV Care [RC] . DIRECTED Vital Signs [RC] ASDIRECTED Nalbuphine [Nubain] 10 mg IVPUSH Q2H PRN Ondansetron [Zofran] 4 mg IVPUSH Q4H PRN Sodium Chloride 0.9% [Saline Flush] 10 ml FLUSH ASDIRECTED PRN Electronic Heart Tones Internal [WOMSER] Per Unit Routine Peripheral IV Insertion Adult [OM.PC] Routine Resuscitation Status Routine 11/20/20 19:30 Lactated Ringers [Ringers, Lactated] 1,000 ml IV ASDIRECTED Oxytocin/Lactated Ringers [Pitocin in LR 10 Units/1,000 ML] 10 unit in 1,000 ml IV .CONTINUOUS Oxytocin/Lactated Ringers [Pitocin in LR 10 Units/1,000 ML] 10 unit in 1,000 ml IV TITRATE 11/20/20 23:30 Ampicillin 1 gm Sodium Chloride 0.9% [Normal Saline] 100 ml IV Q4H 11/21/20 05:15 Patient Status Manage Transfer [TRANSFER] Routine - Assessment Assessment:: PPD#0 - Plan Plan:: * Patient's starting Hb was only 8.3 and with 700 cc blood loss. Will plan repeat CBC this PM unless symptomatic sooner. Monitor bleeding closely * Breast feeding * Routine cares otherwise
[2020-11-21] MEDS ORDERED: Benzocaine/Menthol 20%-0.5% Spray 56 GM Canister TOP PRN (06:15)
[2020-11-21] MEDS ORDERED: Acetaminophen 325 MG Tab PO PRN (06:15)
[2020-11-21] MEDS ORDERED: Docusate Sodium 100 MG Cap PO PRN (06:15)
[2020-11-21] MEDS ORDERED: Witch Hazel Medicated Pads 40/Jar TOP PRN (06:15)
[2020-11-21] MEDS: Ibuprofen 600 MG Tab PO PRN ×2 (12:26→20:32)
[2020-11-21] MEDS ORDERED: diphenhydrAMINE 50 MG/ML SDV IV ONE (12:47)
--- NOTE | 2020-11-21 12:50 | PCM.SN.2 ---
- Free Text/Narrative Note: 1250 Patient reports feeling very weak and dizzy. VS with tachycardia, but normal BP. Exam reassuring. Will check CBC now, but anticipate results showing anemia requiring transfusion. Will order 1 unit of blood now while awaiting results. Depending upon Hb value may need 2nd unit. Will plan repeat CBC in AM. Rachel Portillo MD
[2020-11-21] MEDS ORDERED: Sodium Chloride 0.9% 1,000 ML IV SCH (13:00)
[2020-11-22] MEDS: Ibuprofen 600 MG Tab PO PRN (03:51)
--- NOTE | 2020-11-22 08:00 | PCM.DCSUM1 ---
Discharge Summary - Discharge Data Discharge Date: 11/22/20 Discharge Disposition: Home, Self-Care 01 Condition: Good - Referral to Home Health Primary Care Physician: Rachel Portillo MD - Discharge Diagnosis/Problem(s) (1) 39 weeks gestation of SNOMED Code(s): 54021704 ICD Code: Z3A.39 - 39 WEEKS GESTATION OF Status: Acute Current Visit: Yes (2) Insufficient care SNOMED Code(s): 3189864548595 ICD Code: O09.30 - SUPRVSN OF PREG W INSUFFICIENT ANTENAT CARE, UNSP TRIMESTER Status: Acute Current Visit: Yes Qualifiers: Trimester: third trimester Qualified Code(s): O09.33 - Supervision of with insufficient care, third trimester (3) GBS (group B Streptococcus carrier), +RV culture, currently SNOMED Code(s): 2788197182440, 419421830, 8799731179515 ICD Code: O99.820 - STREPTOCOCCUS B CARRIER STATE COMPLICATING Status: Acute Current Visit: Yes (4) Anemia affecting SNOMED Code(s): 25015431 ICD Code: O99.019 - ANEMIA COMPLICATING , UNSPECIFIED TRIMESTER Status: Acute Current Visit: Yes Qualifiers: Trimester: third trimester Qualified Code(s): O99.013 - Anemia complicating , third trimester (5) Vaginal delivery SNOMED Code(s): 481337510 ICD Code: O80 - ENCOUNTER FOR FULL-TERM UNCOMPLICATED DELIVERY Status: Acute Current Visit: No (6) hemorrhage SNOMED Code(s): 84748938 ICD Code: O72.1 - OTHER IMMEDIATE HEMORRHAGE Status: Acute Current Visit: Yes Qualifiers: hemorrhage type: other immediate Qualified Code(s): O72.1 - Other immediate hemorrhage - Patient Summary/Data Complications: None Consults: None Recommended Follow-up Testing/Procedures: Follow up in 3 weeks for check Hospital Course: 30 y/o at 39 5/7 wks who presented for IOL. Done with pitocin and AROM. Progressed well. Had a vaginal delivery notable for 700 cc EBL Had a low starting Hb on admission of 8.3 and dropped into 6's on reassessment about 8 hours after delivery. Given 2 units of blood on PPD#0. On PPD#1 Hb 7.5 and patient asymptomatic. Desired discharge to home which was done. - Patient Instructions Diet: Regular Diet as Tolerated Activity: As Tolerated Activity, Other: Pelvic rest for 6 weeks Driving: May Drive Today Showering/Bathing: May Shower Showering/Bathing, Other: May Bathe Notify Provider of: Fever, Increased Pain, Swelling and Redness, Drainage, Nausea and/or Vomiting - Discharge Plan *PRESCRIPTION DRUG MONITORING PROGRAM REVIEWED*: No *COPY OF PRESCRIPTION DRUG MONITORING REPORT IN PATIENT ESTEVAN: No Home Medications: Home Meds Docusate Sodium [Colace] 100 mg PO BID PRN cap 11/22/20 [Rx] Ibuprofen [Motrin] 600 mg PO Q6H PRN tablet 11/22/20 [Rx] Patient Handouts: Care After Vaginal Delivery Referrals: Rachel Portillo MD [Primary Care Provider] - (3 weeks for check - can be telehealth ) - Discharge Summary/Plan Comment DC Time >30 min.: No - General Info Date of Service: 11/22/20
--- NOTE | 2020-11-22 08:00 | PCM.PNPP ---
- General Info Date of Service: 11/22/20 Functional Status: Reports: Pain Controlled, Tolerating Diet, Ambulating, Urinating - Review of Systems General: Reports: No Symptoms. Denies: Fatigue, Malaise Pulmonary: Reports: No Symptoms Cardiovascular: Reports: No Symptoms. Denies: Lightheadedness Gastrointestinal: Reports: No Symptoms Genitourinary: Reports: No Symptoms Musculoskeletal: Reports: No Symptoms Neurological: Reports: No Symptoms - Patient Data Vital Signs - Most Recent: Last Vital Signs Temp 36.1 C 11/22/20 04:00 Pulse 72 11/22/20 04:00 Resp 16 11/22/20 04:00 BP 129/74 11/22/20 04:00 Pulse Ox 98 11/22/20 04:00 Weight - Most Recent: 94.347 kg I&O - Last 24 Hours: Intake & Output 11/21/20 11/22/20 11/22/20 22:59 06:59 14:59 Intake Total 680 Balance 680 Lab Results - Last 24 Hours: Laboratory Results - last 24 hr 11/20/20 11/21/20 11/22/20 Range/Units 19:41 13:27 05:03 WBC 14.29 H 12.54 H (3.98-10.04) K/mm3 RBC 3.27 L 3.49 L (3.98-5.22) M/mm3 Hgb 6.5 L* D 7.5 L (11.2-15.7) gm/dl Hct 22.5 L 25.2 L (34.1-44.9) % MCV 68.8 L 72.2 L D (79.4-94.8) fl MCH 19.9 L 21.5 L (25.6-32.2) pg MCHC 28.9 L 29.8 L (32.2-35.5) g/dl RDW Std Deviation 48.5 H 54.5 H (36.4-46.3) fL Plt Count 214 180 L (182-369) K/mm3 MPV 10.7 9.9 (9.4-12.3) fl Neut % (Auto) 82.2 H 65.7 (34.0-71.1) % Lymph % (Auto) 10.5 L 20.7 (19.3-51.7) % [place] % (Auto) 5.7 9.2 (4.7-12.5) % Eos % (Auto) 1.1 2.6 (0.7-5.8) Baso % (Auto) 0.2 0.5 (0.1-1.2) % Neut # (Auto) 11.73 H 8.25 H (1.56-6.13) K/mm3 Lymph # (Auto) 1.50 2.59 (1.18-3.74) K/mm3 [place] # (Auto) 0.82 H 1.15 H (0.24-0.36) K/mm3 Eos # (Auto) 0.16 0.33 (0.04-0.36) K/mm3 Baso # (Auto) 0.03 0.06 (0.01-0.08) K/mm3 Manual Slide Review Abnormal smear Blood Type O POSITIVE Gel Antibody Screen Negative Crossmatch See Detail Med Orders - Current: Current Medications Acetaminophen (Tylenol) 650 mg PO Q4H PRN PRN Reason: mild pain or fever Last Admin: 11/21/20 16:26 Dose: 650 mg Documented by: Benzocaine/Menthol (Dermoplast Pain Relief [place]) 0 gm TOP ASDIRECTED PRN PRN Reason: Perineal Comfort Measure Last Admin: 11/21/20 13:39 Dose: 1 spray Documented by: Docusate Sodium (Colace) 100 mg PO BID PRN PRN Reason: Constipation Sodium Chloride (Normal Saline) 1,000 mls @ 125 mls/hr IV ASDIRECTED PETRA Last Admin: 11/21/20 14:10 Dose: 125 mls/hr Documented by: Ibuprofen (Motrin) 600 mg PO Q6H PRN PRN Reason: Mild pain or fever Last Admin: 11/22/20 03:51 Dose: 600 mg Documented by: Mandeep Nevarez (Simone) 1 pad TOP ASDIRECTED PRN PRN Reason: Perineal Comfort Measure Last Admin: 11/21/20 13:39 Dose: 1 pad Documented by: Discontinued Medications Diphenhydramine HCl (Benadryl) 25 mg IVPUSH Q6H PRN PRN Reason: pruritis Diphenhydramine HCl (Benadryl) 25 mg IV ONETIME ONE Stop: 11/21/20 12:48 Last Admin: 11/21/20 14:11 Dose: 25 mg Documented by: Ephedrine Sulfate (Ephedrine Sulfate) 5 mg IVPUSH ASDIRECTED PRN PRN Reason: Hypotension Fentanyl (Sublimaze) 100 mcg EPIDUR Q3H PRN PRN Reason: Pain Last Admin: 11/20/20 23:07 Dose: 100 mcg Documented by: Fentanyl/Bupivacaine HCl (Fentanyl/Bupivacaine/Ns 2 Mcg-0.125% 100 Ml) 100 ml EPIDUR ASDIRECTED PRN PRN Reason: Pain Last Admin: 11/20/20 23:07 Dose: 100 ml Documented by: Oxytocin/Lactated Ringer's (Pitocin In Lr 10 Units/1,000 Ml) 10 unit in 1,000 mls @ 12 mls/hr IV TITRATE PETRA; Protocol Last Titration: 11/21/20 03:20 Dose: 12 munits/min, 72 mls/hr Documented by: Ampicillin Sodium 2 gm/ Sodium (Chloride) 100 mls @ 200 mls/hr IV ONETIME ONE Stop: 11/20/20 19:56 Last Admin: 11/20/20 20:46 Dose: 200 mls/hr Documented by: Ampicillin Sodium 1 gm/ Sodium (Chloride) 100 mls @ 200 mls/hr IV Q4H PETRA Last Admin: 11/21/20 03:41 Dose: 200 mls/hr Documented by: Oxytocin/Lactated Ringer's (Pitocin In Lr 10 Units/1,000 Ml) 10 unit in 1,000 mls @ 500 mls/hr IV .CONTINUOUS PETRA Last Admin: 11/21/20 05:35 Dose: 500 mls/hr Documented by: Lactated Ringer's (Ringers, Lactated) 1,000 mls @ 40 mls/hr IV ASDIRECTED PETRA Last Admin: 11/21/20 00:06 Dose: 40 mls/hr Documented by: Lidocaine/Epinephrine (Xylocaine-Mpf 1.5% W/Epinephrine 1:200,000) 10 ml .ROUTE .STK-MED ONE Stop: 11/21/20 00:01 Methylergonovine Maleate (Methergine) Confirm Administered Dose 0.2 mg .ROUTE .STK-MED ONE Stop: 11/21/20 04:56 Last Admin: 11/21/20 04:57 Dose: 0.2 mg Documented by: Methylergonovine Maleate (Methergine) 0.2 mg IM NOW STA Stop: 11/21/20 05:14 Last Admin: 11/21/20 05:26 Dose: Not Given Documented by: Misoprostol (Cytotec) Confirm Administered Dose 600 mcg .ROUTE .STK-MED ONE Stop: 11/21/20 04:56 Last Admin: 11/21/20 04:55 Dose: 600 mcg Documented by: Misoprostol (Cytotec) 600 mcg PO NOW STA Stop: 11/21/20 05:14 Last Admin: 11/21/20 05:26 Dose: Not Given Documented by: Nalbuphine HCl (Nubain) 10 mg IVPUSH Q2H PRN PRN Reason: Pain Ondansetron HCl (Zofran) 4 mg IVPUSH Q4H PRN PRN Reason: Nausea/Vomiting Last Admin: 11/21/20 05:27 Dose: 4 mg Documented by: Sodium Chloride (Saline Flush) 10 ml FLUSH ASDIRECTED PRN PRN Reason: Keep Vein Open - Infant Interaction Disposition, : [place] in Room with Family Infant Interaction: Holding Infant Feeding: Attempted ; Nursed Fair/Poor Support Person: Significant Other - Recovery Exam Fundal Tone: Firm Fundal Level: At Umbilicus Fundal Placement: Midline Lochia Amount: Small Lochia Color: Rubra/Red Perineum Description: Intact, Minimal Bruising/Swelling Other Perinuem Description: vaginal laceration Episiotomy/Laceration: Approximated Bladder Status: Voiding Urinary Elimination: Voided - Exam General: Alert, Oriented, Cooperative GI/Abdominal Exam: Soft, Non-Tender Extremities: Normal Inspection Skin: Warm, Dry, Intact - Problem List & Annotations (1) 39 weeks gestation of SNOMED Code(s): 59014625 Code(s): Z3A.39 - 39 WEEKS GESTATION OF Status: Acute Current Visit: Yes (2) Insufficient care SNOMED Code(s): 1061843265074 Code(s): O09.30 - SUPRVSN OF PREG W INSUFFICIENT ANTENAT CARE, UNSP TRIMESTER Status: Acute Current Visit: Yes Qualifiers: Trimester: third trimester Qualified Code(s): O09.33 - Supervision of with insufficient care, third trimester (3) GBS (group B Streptococcus carrier), +RV culture, currently SNOMED Code(s): 1892873544555, 496124616, 0090416675911 Code(s): O99.820 - STREPTOCOCCUS B CARRIER STATE COMPLICATING Status: Acute Current Visit: Yes (4) Anemia affecting SNOMED Code(s): 37085410 Code(s): O99.019 - ANEMIA COMPLICATING , UNSPECIFIED TRIMESTER Status: Acute Current Visit: Yes Qualifiers: Trimester: third trimester Qualified Code(s): O99.013 - Anemia complicating , third trimester (5) Vaginal delivery SNOMED Code(s): 169948352 Code(s): O80 - ENCOUNTER FOR FULL-TERM UNCOMPLICATED DELIVERY Status: Acute Current Visit: No (6) hemorrhage SNOMED Code(s): 60586405 Code(s): O72.1 - OTHER IMMEDIATE HEMORRHAGE Status: Acute Current Visit: Yes Qualifiers: hemorrhage type: other immediate Qualified Code(s): O72.1 - Other immediate hemorrhage - Problem List Review Problem List Initiated/Reviewed/Updated: Yes - My Orders Last 24 Hours: My Active Orders 11/21/20 12:47 Transfuse Red Blood Cells [COMM] Routine 11/21/20 13:00 Sodium Chloride 0.9% [Normal Saline] 1,000 ml IV ASDIRECTED 11/21/20 13:59 Transfuse Red Blood Cells [COMM] Routine 11/22/20 05:03 CBC WITH AUTO DIFF [HEME] Timed 11/22/20 06:15 Heat Therapy [OM.PC] PRN 11/22/20 08:00 Ready for Discharge [RC] PER UNIT ROUTINE - Assessment Assessment:: PPD#1 - Plan Plan:: * Patient's Hb this AM 7.5 after 2 units of blood. Feeling asymptomatic. Will discharge to home. Advised to do PNV and iron supplement on disharge * Breast feeding * Discharge home today
[2020-11-22 14:30] VITALS: BP 120/61; PULSE 104
== END 2020-11-22 14:00 | disposition home or self-care (01) | DRG 806 ==
LOC: JD.OB 04:49 → OBSVTOIN 11-21 04:49 → JD.OB 11-21 04:50
PROVIDERS: ADMIT Obstetrics & Gynecology; ATTEND Obstetrics & Gynecology
PROC: 10E0XZZ Delivery of Products of Conception, External Approach (ICD-10-PCS; principal; 2020-11-21)
PROC: 10907ZC Drainage of Amniotic Fluid, Therapeutic from Products of Conception, Via Natural or Artificial Opening (ICD-10-PCS; 2020-11-21)
PROC: 0HQ9XZZ Repair Perineum Skin, External Approach (ICD-10-PCS; 2020-11-21)
PROC: 3E0R3BZ Introduction of Anesthetic Agent into Spinal Canal, Percutaneous Approach (ICD-10-PCS; 2020-11-21)
PROC: 00HU33Z Insertion of Infusion Device into Spinal Canal, Percutaneous Approach (ICD-10-PCS; 2020-11-21)
DX: O99.824 Streptococcus B carrier state complicating childbirth (principal); D62 Acute posthemorrhagic anemia; Z37.0 Single live birth; Z3A.39 39 weeks gestation of pregnancy; O99.02 Anemia complicating childbirth; O72.1 Other immediate postpartum hemorrhage; O70.0 First degree perineal laceration during delivery
CPT/HCPCS: 01967; 36415; 36430; 51702; 59025; 59409; 80306; 82565; 82570; 84156; 84450; 84460; 85025; 85027; 86592; 86850; 86900; 86901; 86922; A9270-GY; J0290; J1200; J2210; J2405; J2590; J3010; J7030; J7050; J7120; P9016; U0002